=== PATIENT | female | born 1970 | race Caucasian/White ===

== ENCOUNTER 2020-08-13 11:25 | Emergency (ER) | payer OTHER, SELFPAY ==
--- NOTE | ~2020-08-13 | XR_ITS ---
EXAMINATION: XR chest 2V DATE: 08/13/2020 12:06 INDICATION: Cough. TECHNIQUE: Frontal and lateral views of the chest were obtained. COMPARISON: Chest 2 views 04/03/2018, CT abdomen and pelvis 12/16/2010 FINDINGS: There is mild atelectasis at right lung base. No pleural effusion or pneumothorax. The hear t size is normal. There are prominent paracardial fat pads. There are surgical clips in the abdomen. IMPRESSION: 1. Mild atelectasis at right lung base. Reviewed, dictated and finalized at location A. [employer]
--- NOTE | 2020-08-13 11:28 | ED.GENADULT ---
HPI - General Adult General Chief complaint: Upper Respiratory Infection Stated complaint: LUNG PROBLEMS Time Seen by Provider: 08/13/20 11:28 Source: patient Mode of arrival: ambulatory Limitations: no limitations History of Present Illness HPI narrative: 50-year-old female patient presents to the [facility] with complaints of wheezing and shortness of breath for the past 7 to 8 days. Patient states she does have a history of asthma and states it has been acting up recently due to allergies. Patient states she has been using her Advair 2 times daily as well as her rescue inhaler every 4-6 hours. Patient states she has been taking Benadryl at night but denies taking any 24-hour daily antihistamines. Patient states she is starting to get some lower chest pain with coughing and inspiratory breathing. Denies any fevers. Denies any body aches or chills. Related Data Home Medications Medication Instructions Recorded Confirmed clobetasol 0.05 % shampoo See Rx Instructions .ROUTE .COMPLEX 10/08/19 08/13/20 colesevelam 625 mg tablet See Rx Instructions .ROUTE .COMPLEX 10/08/19 08/13/20 epinephrine 0.3 mg/0.3 mL 0.3 mg IM ONCE 10/08/19 08/13/20 injection, auto-injector esomeprazole magnesium 40 mg 40 mg PO DAILY 10/08/19 08/13/20 capsule,delayed release gabapentin 300 mg/6 mL (6 mL) oral 300 mg PO DAILY ml 10/08/19 08/13/20 solution guaifenesin 600 mg tablet, 600 mg PO Q12H PRN 10/08/19 04/25/20 extended release 12 hr hydroxychloroquine 200 mg tablet 200 mg PO BID 10/08/19 08/13/20 ketoconazole 2 % shampoo See Rx Instructions .ROUTE .COMPLEX 10/08/19 08/13/20 lidocaine 5 % topical cream 1 applic TOPICAL DAILY gm 10/08/19 08/13/20 nitroglycerin 0.3 mg sublingual 0.3 mg SUBLINGUAL Q5M PRN 10/08/19 08/13/20 tablet triamcinolone acetonide 0.1 % 1 applic TOPICAL BID 10/08/19 08/13/20 topical cream fluoride (sodium) [PreviDent 5000 1 applic DENTAL DAILY 08/13/20 08/13/20 Booster Plus] guaifenesin [Mucinex] 1,200 mg PO BID 08/13/20 08/13/20 loratadine 10 mg PO DAILY 08/13/20 08/13/20 montelukast mg 08/13/20 nystatin 100,000 unit PO QID 08/13/20 08/13/20 promethazine 12.5 mg PO TID 08/13/20 08/13/20 Allergies Allergy/AdvReac Type Severity Reaction Status Date / Time bee venom protein (honey bee) Allergy Severe Anaphylactic Verified 08/13/20 11:33 Shock cinnamon Allergy Severe Anaphylactic Verified 08/13/20 11:33 Shock Sulfa (Sulfonamide Allergy Intermediate rash Verified 08/13/20 11:33 Antibiotics) Wasp Allergy Unknown Anaphylactic Uncoded 08/13/20 11:33 Shock Review of Systems Review of Systems: Narrative: CONSTITUTIONAL: Denies fever, chills, or sweats. EYES: Denies visual changes, redness, or discharge. ENT: Denies rhinorrhea, congestion, sore throat, or otalgia. CARDIOVASCULAR: Positive bilateral lower chest pain with coughing and inspiratory breathing, denies palpitations, or edema. RESPIRATORY: Positive nonproductive cough with dyspnea. GASTROINTESTINAL: Denies abdominal pain, nausea, vomiting, or diarrhea. GENITOURINARY: Denies dysuria or hematuria. SKIN: Denies rash or itching. MUSCULOSKELETAL: Denies back pain, joint pain, or myalgia. NEUROLOGIC: Denies headache, numbness, or weakness. PSYCHIATRIC: Denies anxiety or depression. [facility] Past Medical History Medical History (Updated 08/13/20 @ 12:25 by LAINEY Prince) Acute autoimmune urticaria Acute bronchitis Acute cystitis without hematuria Bile acid malabsorption syndrome Body mass index (BMI) 50.0-59.9, adult (1998) Chronic GERD (~2014) Esophagitis determined by endoscopy (~06/2020) Needs repeat EGD 06/2021 Essential (primary) hypertension History of pneumonia Mild intermittent asthma in adult without complication Mild persistent asthma without complication Screening for breast cancer Sleep apnea, obstructive Small fiber neuropathy Stress incontinence in female Systemic lupus erythematosus Surgical History Surgica
[2020-08-13 11:34] VITALS: BP 150/88; PULSE 98; RESP 20; TEMP 37.2; O2SAT 99
== END 2020-08-13 12:34 | disposition home or self-care (01) ==
PROVIDERS: Emergency Provider Nurse Practitioner Family; PCP Family Medicine
DX: J98.11 Atelectasis (principal); J45.31 Mild persistent asthma with (acute) exacerbation; I10 Essential (primary) hypertension; G47.33 Obstructive sleep apnea (adult) (pediatric); M32.9 Systemic lupus erythematosus, unspecified; G62.9 Polyneuropathy, unspecified
CPT/HCPCS: 71046; 99213; G0463

== ENCOUNTER 2021-03-03 12:02 | Emergency (ER) | payer OTHER, SELFPAY ==
[2021-03-03 12:10] VITALS: BP 151/100; PULSE 112; RESP 18; TEMP 36.9; O2SAT 97
--- NOTE | 2021-03-03 12:31 | ED.SKABFB ---
HPI - Skin/Abscess/Foreign Bdy General Chief complaint: Skin/Abscess/Foreign Body Stated complaint: Rash Rt arm Time Seen by Provider: 03/03/21 12:32 Source: patient, RN notes reviewed and old records reviewed Mode of arrival: ambulatory Limitations: no limitations History of Present Illness HPI narrative: 50 year old female who presents to express care with complaints of rash to her inner right forearm for the past 5 days. Patient states that she has history of chronic hives and she initially had a large hive on the inner right arm antecubital region but the redness and irritation of her skin has increased in size with pruritus. Patient voices concern that she has developed a cellulitis to the area from itching her skin. No open areas noted to red skin area or any weeping but does have some warmth to area, site measures 15cm X13cm in size and is above and below antecubital area now. Patient states that she has just weaned herself down from Prednisone use for history of flair in her chronic urticaria over the past 6 weeks, last dose 3 days ago. Patient states that she is taking her Claritin 3 times daily and she has history of Lupus and takes daily Plaquenil as treatment for her Lupus. MD complaint: rash Onset (ago): day(s) (5) Related Data Home Medications Medication Instructions Recorded Confirmed clobetasol 0.05 % shampoo See Rx Instructions .ROUTE .COMPLEX 10/08/19 12/26/20 colesevelam 625 mg tablet See Rx Instructions .ROUTE .COMPLEX 10/08/19 12/26/20 esomeprazole magnesium 40 mg 40 mg PO DAILY 10/08/19 12/26/20 capsule,delayed release hydroxychloroquine 200 mg tablet 200 mg PO BID 10/08/19 12/26/20 ketoconazole 2 % shampoo See Rx Instructions .ROUTE .COMPLEX 10/08/19 12/26/20 nitroglycerin 0.3 mg sublingual 0.3 mg SUBLINGUAL Q5M PRN 10/08/19 12/26/20 tablet triamcinolone acetonide 0.1 % 1 applic TOPICAL BID 10/08/19 12/26/20 topical cream fluoride (sodium) [PreviDent 5000 1 applic DENTAL DAILY 08/13/20 12/26/20 Booster Plus] loratadine 10 mg PO DAILY 08/13/20 12/26/20 gabapentin 300 mg/6 mL (6 mL) oral 300 mg PO TID ml 09/18/20 12/26/20 solution montelukast 10 mg tablet mg PO DAILY PRN tablet 09/18/20 12/26/20 Allergies Allergy/AdvReac Type Severity Reaction Status Date / Time bee venom protein (honey bee) Allergy Severe Anaphylactic Verified 12/26/20 11:05 Shock cinnamon Allergy Severe Anaphylactic Verified 12/26/20 11:05 Shock Sulfa (Sulfonamide Allergy Intermediate rash Verified 12/26/20 11:05 Antibiotics) Wasp Allergy Unknown Anaphylactic Uncoded 12/26/20 11:05 Shock Review of Systems Review of Systems: Narrative: CONSTITUTIONAL: Denies fever, chills, or sweats. EYES: Denies visual changes, redness, or discharge. ENT: reports some clear rhinorrhea, no congestion, sore throat, or otalgia. CARDIOVASCULAR: Denies chest pain, palpitations, or edema. RESPIRATORY: Reports occasional non productive cough and some dyspnea at times with exertion, has asthma and states she uses her Albuterol inhaler usually daily and sometimes every 4 hours depending on weather and environmental exposures GASTROINTESTINAL: Denies abdominal pain, nausea, vomiting, or diarrhea. GENITOURINARY: Denies dysuria or hematuria. SKIN: Positive for red inflamed rash with itching to right inner arm MUSCULOSKELETAL: Denies back pain, joint pain, or myalgia. NEUROLOGIC: Denies present headache, numbness, or acute weakness. PSYCHIATRIC: Positive history of anxiety or depression. All systems reviewed & are unremarkable except as noted in HPI and below PMFSH Past Medical History Medical History Achalasia of esophagus Acute autoimmune urticaria Acute bronchitis Acute cystitis without hematuria Bile acid malabsorption syndrome Body mass index (BMI) 50.0-59.9, adult (1998) Chronic GERD (~2014) Esophagitis determined by endoscopy (~06/2020) Needs repeat EGD 06/2021 History of e
== END 2021-03-03 13:00 | disposition home or self-care (01) ==
PROVIDERS: Emergency Provider Registered Nurse
DX: L03.113 Cellulitis of right upper limb (principal); J45.909 Unspecified asthma, uncomplicated; G47.33 Obstructive sleep apnea (adult) (pediatric); M32.9 Systemic lupus erythematosus, unspecified; K21.00 Gastro-esophageal reflux disease with esophagitis, without bleeding
CPT/HCPCS: 99213; G0463

== ENCOUNTER 2021-03-06 09:57 | Emergency (ER) | payer OTHER, SELFPAY ==
[2021-03-06 10:04] VITALS: BP 159/110; PULSE 108; RESP 20; TEMP 36.7; O2SAT 95
[2021-03-06 11:24] LABS: Basophils Percent Auto 0.4 % (0.2-1.2); Eosinophils Absolute Auto 0.5 K/mm3 (0-0.3); Eosinophils Percent Auto 6.2 % (0-4.4); Hematocrit 41.7 % (37.0-47.0); Hemoglobin 13.6 g/dL (12.0-15.0); Immature Granulocyte Absolute 0.09 K/mm3 (0.00-0.031); Immature Granulocyte Percent A 1.1 % (0-0.5); Lymphocytes Absolute Auto 1.83 K/mm3 (0.9-3.2); Lymphocytes Percent Auto 22.1 % (18.3-44.2); Mean Corpuscular HGB Conc 32.6 g/dl (32-36); Mean Corpuscular Hemoglobin 29.8 pg (26-34); Mean Corpuscular Volume 91.4 fl (80-100); Mean Platelet Volume 8.8 fl (7.4-10.4); Monocytes Absolute Auto 0.6 K/mm3 (0.1-0.6); Monocytes Percent Auto 7.1 % (2.6-8.5); Neutrophils Absolute Auto 5.2 K/mm3 (1.3-6.7); Neutrophils Percent Auto 63.1 % (45.5-73.1); Platelet Count Result 267 k/mm3 (150-375); Red Blood Count 4.56 M/mm3 (4.2-5.4); Red Cell Distribution Width 14.1 % (11.5-14.5); White Blood Count 8.3 K/mm3 (4.5-10.0)
[2021-03-06 11:33] LABS: Lactic Acid Reflex 1.5 mmol/L (0.7-2.1)
[2021-03-06 11:34] LABS: Alanine Aminotransferase 32 U/L (4-35); Albumin Level 3.9 g/dL (3.5-5.1); Alkaline Phosphatase 114 U/L (38-126); Anion Gap 8 mmol/L (8-16); Aspartate Amino Transferase 32 U/L (14-36); Bilirubin,Total 0.3 mg/dL (0.2-1.3); Blood Urea Nitrogen 15 mg/dL (7-17); Calcium 9.1 mg/dL (8.4-10.2); Carbon Dioxide 30 mmol/L (22-30); Chloride 103 mmol/L (98-107); Estimated CRCL calculation 143 ml/min; Estimated Glomerular Filt Rate > 60; Glucose 95 mg/dL (65-105); Potassium 3.9 mmol/L (3.4-5.0); Sodium 141 mmol/L (137-145)
--- NOTE | 2021-03-06 11:58 | ED.SKABFB ---
HPI - Skin/Abscess/Foreign Bdy General Chief complaint: Skin/Abscess/Foreign Body Stated complaint: cellulitis on UE Time Seen by Provider: 03/06/21 10:11 Source: patient Mode of arrival: ambulatory Limitations: no limitations History of Present Illness HPI narrative: 50-year-old with a history of lupus here with complaints of rash in the right antecubital area she states that she went to urgent care few days ago was started on Keflex however the rash is spreading. She denies any fever or chills. MD complaint: rash Onset (ago): day(s) (3) Location: RUE (Antecubital) Quality: pruritic Pain Consistency: constant Relieving factors: none Exacerbating factors: none Context: none Related Data Home Medications Medication Instructions Recorded Confirmed clobetasol 0.05 % shampoo See Rx Instructions .ROUTE .COMPLEX 10/08/19 12/26/20 colesevelam 625 mg tablet See Rx Instructions .ROUTE .COMPLEX 10/08/19 12/26/20 esomeprazole magnesium 40 mg 40 mg PO DAILY 10/08/19 12/26/20 capsule,delayed release hydroxychloroquine 200 mg tablet 200 mg PO BID 10/08/19 12/26/20 ketoconazole 2 % shampoo See Rx Instructions .ROUTE .COMPLEX 10/08/19 12/26/20 nitroglycerin 0.3 mg sublingual 0.3 mg SUBLINGUAL Q5M PRN 10/08/19 12/26/20 tablet triamcinolone acetonide 0.1 % 1 applic TOPICAL BID 10/08/19 12/26/20 topical cream fluoride (sodium) [PreviDent 5000 1 applic DENTAL DAILY 08/13/20 12/26/20 Booster Plus] loratadine 10 mg PO DAILY 08/13/20 12/26/20 gabapentin 300 mg/6 mL (6 mL) oral 300 mg PO TID ml 09/18/20 12/26/20 solution montelukast 10 mg tablet mg PO DAILY PRN tablet 09/18/20 12/26/20 Allergies Allergy/AdvReac Type Severity Reaction Status Date / Time bee venom protein (honey bee) Allergy Severe Anaphylactic Verified 03/06/21 10:08 Shock cinnamon Allergy Severe Anaphylactic Verified 03/06/21 10:08 Shock Sulfa (Sulfonamide Allergy Intermediate rash Verified 03/06/21 10:08 Antibiotics) Wasp Allergy Unknown Anaphylactic Uncoded 12/26/20 11:05 Shock Review of Systems Review of Systems: All systems reviewed & are unremarkable except as noted in HPI and below Constitutional: Constitutional: Reports no additional constitutional complaints Eyes: Eyes: Reports no additional eye complaints ENT: Reports system reviewed and no additional complaints, except as documented Cardiovascular: Cardiovascular: Reports no additional cardiovascular complaints Respiratory: Respiratory: Reports no additional respiratory complaints Gastrointestinal: Gastrointestinal: Reports no additional gastrointestinal complaints Musculoskeletal: Musculoskeletal: Reports no additional musculoskeletal complaints Integumentary/Breasts: Skin/Breast: Reports as per HPI [facility] Past Medical History Medical History Achalasia of esophagus Acute autoimmune urticaria Acute bronchitis Acute cystitis without hematuria Bile acid malabsorption syndrome Body mass index (BMI) 50.0-59.9, adult (1998) Chronic GERD (~2014) Esophagitis determined by endoscopy (~06/2020) Needs repeat EGD 06/2021 History of esophageal dilatation History of esophageal stricture History of pneumonia Mild intermittent asthma in adult without complication Mild persistent asthma without complication Screening for breast cancer Sleep apnea, obstructive Small fiber neuropathy Stress incontinence in female Systemic lupus erythematosus Surgical History Surgical History History of cholecystectomy 2010 History of esophageal surgery 2014 - Heller's myotomy History of esophagogastroduodenoscopy (EGD) (~10/2019) History of lumpectomy of right breast 2016 History of sinus surgery 1998 Family History Family History Mother Family history of type 2 diabetes mellitus Hypertension Arthritis Sibling Cancer
[2021-03-06 12:15] VITALS: BP 162/100; PULSE 94; RESP 18; O2SAT 95
== END 2021-03-06 12:16 | disposition home or self-care (01) ==
PROVIDERS: Emergency Provider Family Medicine; PCP Family Medicine
DX: B36.9 Superficial mycosis, unspecified (principal); M32.9 Systemic lupus erythematosus, unspecified; J45.909 Unspecified asthma, uncomplicated
CPT/HCPCS: 36415; 80053; 83605; 85025; 87040; 99283

== ENCOUNTER → 2021-10-03 08:25 | Outpatient (CLI) | payer OTHER, SELFPAY ==
[2021-10-04 02:21] LABS: SARS-CoV-2 RNA PCR Negative
== END ==
PROVIDERS: PCP Family Medicine; Visit Provider Nurse Practitioner
DX: Z20.822 Contact with and (suspected) exposure to COVID-19 (principal)
CPT/HCPCS: C9803; U0003; U0005

== ENCOUNTER 2022-08-27 12:30 | Outpatient (RCR) | payer OTHER, SELFPAY ==
--- NOTE | 2022-07-04 15:22 | PTOPEVAL1 ---
Assessment and note entered by Shreyas Bobo, PT, DPT Evaluation Information Assessment Status Evaluation Diagnosis Myalgia Onset 8 years Subjective Information Pt states she has small fiber peripheral neuropathy, she states she causes a delay in her reflexes. She states her walking and balance has been off since her neuropathy has worsened. She also reports tripping often. She would like to start walking for exercise. Reported Pain Level Pain Score 0: Self Report Assessment PT Clinical Summary Leah presents to therapy today for her initial evaluation with a diagnosis of myalgia. Today she reports decreased balance, strength, and coordination d/t her small fiber peripheral neuropathy. Leah demonstrates fair strength in her hips throughout as well as demonstrates increased pelvic rotation and lateral sway during ambulation. She requires increased UE support to ascend/descend stairs. She scored a 48/56 on the [place] ROSA balance assessment. Skilled physical therapy services are indicated to address balance and strength deficits, to improve functional mobility, to improve gait, and to promote unlimited mobility . Plan of Care Interventions Gait Training,Manual Therapy,Neuro Re-education, Patient/Caregiver Educati,Therapeutic Activities, Therapeutic Exercise PT Services Indicated Yes Treatment Frequency and 1x/wk for 6 wks Duration These treatments will address the objective and functional deficits as defined above. The patient will be advanced safely and appropriately in order for the patient to progress towards his/her prior level of function. Additional exercises will be introduced and as well as a comprehensive home exercise program upon discharge, if needed, ?to ensure carryover of functional gains achieved in the clinic. This treatment plan has been reviewed and agreement upon by the patient.
--- NOTE | 2022-07-23 14:20 | PCPTNOTE ---
Patient did not show to appointment this date. Called and spoke with patient who states she got her times mixed up this date. Confirmed her appointment for 08/02/22 at 14:00.
--- NOTE | 2022-08-06 16:17 | PCPTNOTE ---
Patient had to cancel due to family member passing.
--- NOTE | 2022-08-27 13:27 | PTOPDC ---
Assessment and note entered by Shreyas Bobo, PT, DPT Evaluation Information Assessment Status Discharge Diagnosis Myalgia Onset 8 years Subjective Information Pt states her walking has improved. She states she was able to walk 3k steps on Friday. She states her pain has improved and she no longer needs to use the cane when walking. Reported Pain Level Pain Score 1: Self Report Assessment PT Clinical Summary Leah presents to therapy today following 3 visits of skilled therapy and a month long participation in a home exercise program. Today she demonstrates improvements in her 2 min walk distance, but this is still decreased from her age matched peers. She also demonstrates improved times with her TUG and 5xSTS score no longer placing her at an increased risk of falls. She also demonstrates a 55/56 score on the [place] ROSA balance assessment. She has progressed well towards all of her therapy goals and will be discharged from skilled therapy services at this time with instructions to continue her HEP upon discharge and to follow up with her referring provider if new concerns arise. Plan of Care Interventions Gait Training,Manual Therapy,Neuro Re-education, Patient/Caregiver Educati,Therapeutic Activities, Therapeutic Exercise PT Services Indicated Yes Treatment Frequency and to be discharged Duration
== END 2022-08-28 08:24 | disposition home or self-care (01) ==
LOC: ANHGOSHPT 12:30
PROVIDERS: PCP Nurse Practitioner Family
DX: M79.10 Myalgia, unspecified site (principal)
CPT/HCPCS: 97110; 97112; 97161; 97530; 99199

== ENCOUNTER 2022-09-14 15:51 | Emergency (ER) | payer OTHER, SELFPAY ==
[2022-09-14 16:16] VITALS: BP 156/77; PULSE 92; RESP 16; TEMP 36.9; O2SAT 98
--- NOTE | 2022-09-14 17:05 | ED.FEMALEGU ---
HPI - Female Genitourinary General Chief complaint: Urogenital-Female Stated complaint: UTI SYMPTOMS Time Seen by Provider: 09/14/22 17:05 Source: patient and RN notes reviewed Mode of arrival: ambulatory Limitations: no limitations History of Present Illness HPI Narrative: 52-year-old female with history of lupus and small fiber neuropathy presented for complaint of left flank pain for about 4 days. She endorses at the onset it was severe while she was driving back from [place]. She states she continues to have flank pain and started with burning with urination and incomplete urination about 2 days ago. She endorses when she gets a UTI she usually starts with kidney pain. She denies nausea, vomiting diarrhea, hematuria, fevers/ chills. she endorses decreased appetite. She has taken hydrocodone, gabapentin, tylenol for symptoms. She is scheduled with her PCP this week. Related Data Home Medications Medication Instructions Recorded Confirmed colesevelam 625 mg tablet (WelChol) See Rx Instructions .Route .COMPLEX 10/08/19 05/17/22 montelukast 10 mg tablet mg PO DAILY PRN 09/18/20 05/17/22 loratadine 10 mg tablet (Claritin) 10 mg PO DAILY 08/03/21 05/17/22 triamcinolone acetonide 0.1 % 1 applic topical BID PRN 08/03/21 05/17/22 topical cream budesonide-formoterol HFA 160 1 inh inhalation ONCE 05/17/22 05/17/22 mcg-4.5 mcg/actuation aerosol inhaler (Symbicort) gabapentin 600 mg tablet 600 mg PO BID 05/17/22 05/17/22 rabeprazole 20 mg tablet,delayed 20 mg PO BID 05/17/22 05/17/22 release tiotropium bromide 2.5 2 puff inhalation BID 05/17/22 05/17/22 mcg/actuation mist for inhalation (Spiriva Respimat) Allergies Allergy/AdvReac Type Severity Reaction Status Date / Time bee venom protein (honey bee) Allergy Severe Anaphylactic Verified 09/14/22 17:05 Shock cinnamon Allergy Severe Anaphylactic Verified 09/14/22 17:05 Shock Sulfa (Sulfonamide Allergy Intermediate rash Verified 09/14/22 17:05 Antibiotics) Wasp Allergy Unknown Anaphylactic Uncoded 09/14/22 17:05 Shock Review of Systems Review of Systems: CONSTITUTIONAL: Denies body aches, fever, chills, or sweats. CARDIOVASCULAR: Denies chest pain, palpitations, or edema. RESPIRATORY: Denies cough or dyspnea. GASTROINTESTINAL: Denies abdominal pain, nausea, vomiting, or diarrhea. GENITOURINARY: per HPI SKIN: Denies rash, itching, or wounds. MUSCULOSKELETAL: Denies back pain or myalgia. 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 Body mass index (BMI) 50.0-59.9, adult (1998) Chronic GERD (~2014) Esophagitis determined by endoscopy (~06/2020) Essential hypertension History of esophageal dilatation History of esophageal stricture History of pneumonia History of shingles Sleep apnea, obstructive Small fiber neuropathy Stress incontinence in female Systemic lupus erythematosus Vitamin D deficiency Surgical History Surgical History History of cholecystectomy 2010 History of esophageal surgery 2015 - Heller's myotomy History of esophagogastroduodenoscopy (EGD) (~10/2019) History of lumpectomy of right breast 2016 History of sinus surgery 1998 Family History Family History Mother Family history of type 2 diabetes mellitus Hypertension Arthritis Sibling Cancer Patient sister from cancer Social History Social History Smoking status: Never smoker Second hand tobacco smoke exposure: No Alcohol intake: current Drinks per week: 1 Substance use: never Additional occupation/education comments: Nurse Charge Rn Gender identity (if verbalized by the patient): Female [employer] care jaleel
== END 2022-09-14 17:22 | disposition home or self-care (01) ==
PROVIDERS: Emergency Provider Nurse Practitioner Family; PCP Nurse Practitioner Family
DX: R10.9 Unspecified abdominal pain (principal); K21.9 Gastro-esophageal reflux disease without esophagitis; I10 Essential (primary) hypertension; M32.9 Systemic lupus erythematosus, unspecified
CPT/HCPCS: 81003; 87086; 87088; 99213; G0463

== ENCOUNTER 2022-10-22 09:49 | Emergency (ER) | payer OTHER, SELFPAY ==
[2022-10-22 10:02] VITALS: BP 150/102; PULSE 88; RESP 16; TEMP 36.4; O2SAT 97
--- NOTE | 2022-10-22 10:16 | ED.GENADULT ---
HPI - General Adult General Chief complaint: Extremity Problem,Nontraumatic Stated complaint: splinter big toe rt foot Source: patient Mode of arrival: ambulatory Limitations: no limitations History of Present Illness HPI narrative: Patient presents for evaluation of suspected splinter in her right great toe since 1800 last night. She was walking around barefoot in her home on wooden floors at the time of the event. She has been unable to remove it. She reports moderate pain particularly with weightbearing and walking. She is not diabetic but does have neuropathy for which she takes gabapentin 600mg PO BID. Date of last tetanus more than five years ago. She has underlying SLE. Related Data Home Medications Medication Instructions Recorded Confirmed colesevelam 625 mg tablet (WelChol) See Rx Instructions .Route .COMPLEX 10/08/19 10/22/22 triamcinolone acetonide 0.1 % 1 applic topical BID PRN Itching 08/03/21 10/22/22 topical cream budesonide-formoterol HFA 160 1 inh inhalation ONCE 05/17/22 10/22/22 mcg-4.5 mcg/actuation aerosol inhaler (Symbicort) gabapentin 600 mg tablet 600 mg PO BID 05/17/22 10/22/22 rabeprazole 20 mg tablet,delayed 20 mg PO BID 05/17/22 10/22/22 release tiotropium bromide 2.5 2 puff inhalation BID 05/17/22 10/22/22 mcg/actuation mist for inhalation (Spiriva Respimat) Allergies Allergy/AdvReac Type Severity Reaction Status Date / Time bee venom protein (honey bee) Allergy Severe Anaphylactic Verified 10/22/22 09:52 Shock cinnamon Allergy Severe Anaphylactic Verified 10/22/22 09:52 Shock Sulfa (Sulfonamide Allergy Intermediate rash Verified 10/22/22 09:52 Antibiotics) Wasp Allergy Unknown Anaphylactic Uncoded 10/22/22 09:52 Shock Review of Systems Review of Systems: CONSTITUTIONAL: Denies fever, chills, or sweats. EYES: Denies visual changes, redness, or discharge. ENT: Denies rhinorrhea, congestion, sore throat, or otalgia. CARDIOVASCULAR: Denies chest pain, palpitations, or edema. RESPIRATORY: Denies cough or dyspnea. GASTROINTESTINAL: Denies abdominal pain, nausea, vomiting, or diarrhea. GENITOURINARY: Denies dysuria or hematuria. SKIN: Reports splinter in right great toe. Denies rash or itching. MUSCULOSKELETAL: Reports pain in right great toe NEUROLOGIC: Reports chronic neuropathy in BLE. Denies headache, dizziness, or weakness. PSYCHIATRIC: Denies anxiety or depression. 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 Body mass index (BMI) 50.0-59.9, adult (1998) Chronic GERD (~2014) Esophagitis determined by endoscopy (~06/2020) Essential hypertension History of esophageal dilatation History of esophageal stricture History of pneumonia History of shingles Sleep apnea, obstructive Small fiber neuropathy Stress incontinence in female Systemic lupus erythematosus Vitamin D deficiency Surgical History Surgical History History of cholecystectomy 2010 History of esophageal surgery 2015 - Heller's myotomy History of esophagogastroduodenoscopy (EGD) (~10/2019) History of lumpectomy of right breast 2016 History of sinus surgery 1998 Family History Family History Mother Family history of type 2 diabetes mellitus Hypertension Arthritis Sibling Cancer Patient sister from cancer Social History Social History Smoking status: Never smoker Second hand tobacco smoke exposure: No Alcohol intake: current Drinks per week: 1 Substance use: never Substance use type: does not use Lack of Transportation: No Lack of Food: Never True Current Housing: I Have Housing Concerned About Future Housin
[2022-10-22] MEDS: TETANUS,DIPHTHERIA,AC PERTUSSIS ADULT (0.5 ML) BOOSTRIX IM (10:29)
== END 2022-10-22 11:27 | disposition home or self-care (01) ==
PROVIDERS: Emergency Provider Nurse Practitioner; PCP Family Medicine
DX: S91.141A Puncture wound with foreign body of right great toe without damage to nail, initial encounter (principal); W45.8XXA Other foreign body or object entering through skin, initial encounter; Z23 Encounter for immunization; K21.9 Gastro-esophageal reflux disease without esophagitis; M32.9 Systemic lupus erythematosus, unspecified; G62.9 Polyneuropathy, unspecified
CPT/HCPCS: 10120; 90471; 90715; 99213; G0463

== ENCOUNTER 2023-05-15 10:40 | Outpatient (CLI) | payer OTHER, SELFPAY ==
[2023-05-15 13:15] LABS: Kit Draw Collected
== END 2023-05-15 10:41 | disposition home or self-care (01) ==
LOC: ANHGOSHLAB 10:41
PROVIDERS: PCP Family Medicine; Visit Provider Nurse Practitioner Family
DX: Z13.1 Encounter for screening for diabetes mellitus (principal); Z13.21 Encounter for screening for nutritional disorder; Z13.220 Encounter for screening for lipoid disorders
CPT/HCPCS: 36415

== ENCOUNTER 2024-08-03 10:18 | Outpatient (CLI) | payer OTHER, SELFPAY ==
[2024-08-03 11:16] LABS: Influenza A QL RT-PCR Negative (Negative); Influenza B QL RT-PCR Negative (Negative); RSV RNA, RT-PCR Negative (Negative); SARS-CoV-2 RNA PCR Positive (Negative)
== END 2024-08-03 10:19 | disposition home or self-care (01) ==
LOC: ANHLAB 10:19
PROVIDERS: PCP Nurse Practitioner Family; Visit Provider Nurse Practitioner Family
DX: R68.89 Other general symptoms and signs (principal)
CPT/HCPCS: 87637

== ENCOUNTER 2025-01-24 09:41 | Outpatient (CLI) | payer OTHER, SELFPAY ==
--- OUTSIDE RECORDS SUMMARY | 2025-01-24 10:48 | XMS_ITS ---
Author Organization [facility] Address [address] [place] [address] [address] [place] [address] Care Team Providers Care Membership Coordinator Name Role Phone Ashley Agrawal PA-C REASON FOR VISIT med check Encounters Encounter Location Date Provider Diagnosis [facility] [address] [facility] [address] [place] [address] 01/10/2025 sAhley Agrawal Plan Of Treatment Next Appt Details Provider Name:Veronica Mauro adelfo, 04/14/2025 10:30:00 AM, [address] [facility], [address], [place], [address], Progress Notes * Leah ARRINGTONDOB: 1 (54 yo F)Acc No.[id number]:01/10/2025 Progress Notes Patient: Leah GOODEN Appointment Provider: MONIQUE Singh :1970 A ge:54 Y S ex:Female Supervising Provider:Sanjuana Ramirez MD Date:01/10/2025 Address:[address] [place] [address], [facility] Subjective: * Chief Complaints: * 1 . Med check. * Medical History: Objective: * Vitals: Assessment: Plan: * Treatment: * Billing Information: * Visit Code: * Procedure Codes: * Electronic signature of Jagruti Ramirez MD on 01/24/2025 at 10:48 AM CDT Sign off status: Pending * Appointment Provider: MONIQUE Singh Date: 0 01/10/2025 Generated for Printing/Faxing/eTransmitting on: 0 01/24/2025 10:48 AM CDT
--- OUTSIDE RECORDS SUMMARY | 2025-01-24 10:49 | XMS_ITS | Encounter Summary ---
Author Organization [facility] Address [address] [place] [address] Care Team Providers Care Senior Gl Accountant Name Role Phone Celestino Barajas DO Primary Care Provider [phone]- [phone] Bahman Thomas MD PhD Unavailable Cameron Fong MD Primary Care Provider +1- [phone] Luda Bolaños MD Primary Care Provider Cameron Fong MD Primary Care Provider [phone]- [phone] Luda Bolaños MD Primary Care Provider Elizabeth Orr MD Primary Care Provider Hanh Mcleod RN Unavailable Unavailabl e Encounter Details Date Type Department Care Team (Late st Contact Info) Description 12/30/2017 Orders Only [address] [address] Holley Lux MD [address] [address] Social History Tobacco Use Types Packs/Day Years Used Date Smoking Tobacco: Never Comments Unknown Sex and Gender Information Value Date Recorded Sex Assigned at Not on file Legal Sex Female 12:28 PM [employer]EL[employer] Gender Identity Female 03/13/2018 10:24 AM CDT Sexual Orientation Not on file documented as of this encounter Plan of Treatment Not on file documented as of this encounter Visit Diagnoses Not on filedocumented in this encounter Care Teams Senior Gl Accountant Relationship Specialty Start Date End Date Celestino Barajas DO PCP - General 01/02/17 07/15/18 Cameron Fong MD [address] [place] [address] PCP - General Family Practice 07/16/18 10/06/19 Luda Bolaños MD [address] [place] [address] PCP - General Family Medicine 10/07/19 10/27/19 Cameron Fong MD [address] [place] [address] PCP - General 10/28/19 12/06/19 Luda Bolaños MD [address] [place] [address] PCP - General Family Medicine 12/07/19 09/26/20 Elizabeth Orr MD [address] [place] [address] PCP - General Family Practice 09/27/20 Bahman Thomas MD PhD [address] [place] [address] Referring Physician Neuromuscular Medicine 06/29/1812/06/19 Hanh Mcleod RN Registered Nurse Pulmonary Disease 12/02/22 documented as of this encounter
--- OUTSIDE RECORDS SUMMARY | 2025-01-24 10:49 | XMS_ITS ---
Author Organization [facility] Address [address] [place] [address] [address] [place] [address] Care Team Providers Care Pet Care Worker Name Role Phone Veronica Rivera Unavailable [phone] Allergies Allergen (clinical drug ingredient) Drug/Non Drug Allergy documented on EMR Reaction Allergy Type Onset Date Status Cinnamon Cinnamon anaphylaxis Allergy Active Substance with sulfonamide structure and antibacterial mechanism of action (substance) Sulfa Antibiotics hives Drug Allergy Active REASON FOR VISIT med check Medications Medication SIG (Take, Route, Frequency, Duration) Notes Start Date End Date Status Nystatin 206074 UNIT/ML Mouth/Throat for 30 Days Active traMADol HCl 50 MG 1 tablet as needed O ral twice a day for 30 days 10/18/2024 Active Gabapentin 600 MG Oral for 30 Days Active Colesevelam HCl 625 MG Oral for 30 Days Active Latanoprost 0.005 % Ophthalmic for 25 Days Active Diphenoxylate-Atropine 2.5-0.025 MG/5ML 5 mL as needed Orally Four times a day Active Timolol Maleate 0.5 % INSTILL 1 DROP INT O BOTH EYES ONCE IN THE MORNING Ophthalmic for 75 Days Active Ondansetron HCl 4 MG Oral for 21 Days Active RABEprazole Sodium 20 MG Oral for 30 Days Active Vital Signs Blood pressure systolic 147 mm Hg 01/21/20 25 Blood pressure diastolic 85 mm Hg 025 Heart Rate 78 /min 01/20/2025 Height 5ft 5.5in in 01/20/2025 Weight 309 lbs 01/20/2025 BMI 50.63 kg/m2 01/20/2025 Height-cm 166.37 cm 01/20/2025 Weight-kg 140.16 kg 01/20/2025 Encounters Encounter Location Date Provider Diagnosis [facility] [id number] [place] [address] [address] [place] [address] 01/20/2025 Veronicanakita Rivera Morbid obesity E66.01 ; [facility] use of drug Z79.899 and Peripheral neuropathy G62.9 Assessments Encounter Date Diagnosis (ICD Code) Assessment Notes Treatment Notes Treatment Clinical Notes Section Notes 01/20/2025 Morbid obesity (ICD-10 - E66.01) 01/20/2025 assistant terminal manager use of drug (ICD-10 - Z79.899) 01/20/2025 Peripheral neuropathy (ICD-10 - G62.9) 01/20/2025 Other Body Mass Index : Care Instructions material was printed, High Blood Pressure: Care Instructions material was printed Plan Of Treatment Treatment Notes Assessment Notes Other Body Mass Index: Car e Instructions material was printed, High Blood Pressure: Care Instructions material was printed Next Appt Details Provider Name:Veronica Mauro adelfo, 04/14/2025 10:30:00 AM, [id number] [place] [address], [address], [place], [address], Progress Notes * Leah ARRINGTONDOB: 1 (54 yo F)Acc No.[id number]:01/20/2025 Progress Notes Patient: Leah GOODEN Appointment Provider: Janice Rivera NP :1970 A ge:54 Y S ex:Female Supervising Provider:Sanjuana Ramirez MD Date:01/20/2025 Address:[address] [place], [place] [address] Subjective: * Chief Complaints: * 1 . Med check. * HPI: * Established Patient: Established Patient Questionnaire: 1 . Are you currently taking a Blood Thinner Medication? N o 2 . Do you have an allergy to I.V. Contrast or Shellfish? Y es 3 . List any changes to medical history. (eg; Falls, Test, Scans, Blood Work, and Hospitalizations) N one 4 . Have you been exposed to anyone with COVID in the last 2 weeks? N o 5 . Have you been exposed to anyone with the FLU in the last 72 hours? N o 6 . What is your Pain Level today? (1-10, Scroll and select one) 2 7 . Where is your pain located? H ead,Left Hand,Low Back,Left Leg,Right Leg 8 . After your last visit, what Percentage of improvement did you experience? 5 9 . Are you doing Physical Therapy, Chiropractic, or Massage Therapy? Y es 1 0. Are you doing an at home Exercise Program? Y es 1 1. What activities or positions increase your Pain? (Scroll to select one or multiple) S itting,Chores 1 2. What activities or positions decrease your Pain? (Scroll to select one or multiple) L nirav down,Walking,Massage Therapy 1 3. How would you describe your Pain? (Scroll to select one or multiple) A elizabeth,Throbbing,Numbness 1 4. Are you having difficulty sleeping? N o 1 6. When was your last Mammogram? (Please put N/A if you are male, for Females please put the best Estimate or Never. ) A ugust 24 1 7. When was your last Colonoscopy? (Please put the best Estimate or Never. ) F eb 23 1 8. Do you need any refills on your medications today? Y es 1 9. Please list ALL changes to Medications or Allergies? I ncreased gabapentin 2 0. Are you Diabetic? N o 2 1. Do you suffer from Constipation? N o Procedure Consent P ain Management Agreement obtained on 0 01/20/2025 * Medical History: L upus, Small fiber peripheral neuropathy, Polymyositis/autoimmune, Achalasia, Bile acid malabsorption, Increased eye pressure, Asthma, Allergies. * Surgical History: c holecystectomy , 2 lumpectomies from breast benign . * Family History: F ather: 81 yrs, myasthenia gravis. M other: 96 yrs, vascular dementia.? * Social History: * Established Patient: S moking D o you smoke? N o Form Scores C ESD-R PMQ-R GPCOG Date 0 10/18/2024 C ESD-R Score 2 C ESD-R Risk L ow Risk (0 - 16) P MQ-R Score 2 0 P MQ-R Risk L ow Risk (0 - 34) G PCOG Score 9 G PCOG Risk N o Risk (9) C ESD-R PMQ-R GPCOG Testing Interval L ow Risk (every 6 months) C ESD-R PMQ-R GPCOG Next Test Due 0 04/17/2025 S OAPP Date 0 10/18/2024 S OAPP-R Score 9 S OAPP-R Risk L ow Risk (0 -9) S OAPP-R Testing Interval L ow Risk (every 6 months) C OMM Date 0 10/18/2024 C OMM Score 0 C OMM Risk N egative (< 9) * GPCOG: G PCOG 1 . I am going to give you a name and address. After I have said it, I want you to repeat it. Remember this name and address because I am going to ask you to tell it to me again in a few minutes: Jude Guillaume, [address] [facility]. Max 4 attempts R ead to the patient. 2 . What is the date? (exact only) C orrect 3 . Choose which image indicates the hours of a clock (correct spacing required) C orrect 4 . Which clock shows 10 minutes past eleven o'clock? C orrect 5 . Can you tell me something that happened in the news recently? (Recently = in the last week. If a general answer is given, eg war , lot of rain , ask for details. Only specific answer scores). C orrect 6 . What was the name and address I asked you to remember? First Name = Jude Bourgeois orrect 6 . What was the name and address I asked you to remember? Last Name = [place] C orrect 6 . What was the name and address I asked you to remember? Street Number = [address] C orrect 6 . What was the name and address I asked you to remember? Street Name = [facility] C orrect 6 . What was the name and address I asked you to remember? City = [place] C orrect T otal Score (out of 9) 9 W e have evaluated the patient using PMQ-R, CESD-R and GPCOG assessments. Based on data collected from the PMQ-R, we are evaluating the risk for abuse, misuse and diversion. Furthermore, we are screening the patient for depression using the CESD-R assessment. Lastly, we are utilizing GPCOG to ensure that the current treatment plan is not impairing cognition. Per assessments today the patient has low risk for depression, low risk for opioid misuse, abuse, and no cognitive impairment. * Medications: T aking Diphenoxylate-Atropine 2.5-0.025 MG/5ML Liquid 5 mL as needed Orally Four times a day , Taking Ondansetron HCl 4 MG Tablet Oral , Taking RABEprazole Sodium 20 MG Tablet Delayed Release Oral , Taking Timolol Maleate 0.5 % Solution INSTILL 1 DROP INTO BOTH EYES ONCE IN THE MORNING Ophthalmic , Taking Latanoprost 0.005 % Solution Ophthalmic , Taking Gabapentin 600 MG Tablet Oral , Taking Colesevelam HCl 625 MG Tablet Oral , Taking Nystatin 497044 UNIT/ML Suspension Mouth/Throat , Taking traMADol HCl 50 MG Tablet 1 tablet as needed Oral twice a day , Medication List reviewed and reconciled with the patient * Allergies: S ulfa Antibiotics: hives, Cinnamon: anaphylaxis. Objective: * Vitals: H t: 5ft 5.5in, Wt:309lbs, BP:147/85mm Hg, Pain scale:21-10, HR:78/min, BMI:50.63Index, Ht-cm: 166.37 cm, Wt-k.16 kg, Body Surface Area: 2.54. Assessment: * Assessment: 1. M orbid obesity - E66.01 (Primary) 2 . L chen term use of drug - Z79.899? 3. P eripheral neuropathy - G62.9 Plan: * Treatment: * Billing Information: * Visit Code: * Procedure Codes: * Electronic signature of Jagruti Ramirez MD on 01/24/2025 at 10:48 AM CDT Sign off status: Pending * Appointment Provider: Janice Rivera NP Date: 0 01/20/2025 Generated for Printing/Faxing/eTransmitting on: 0 01/24/2025 10:48 AM CDT History and Physical Notes * HPI (History of Present Illness) Category Sub-Category Detail Notes Category Not es *Established Patient Established Patient Questionnaire: 1. Are you currently taking a Blood Thinner Medication?: No 2. Do you have an allergy to I.V. Contra st or Shellfish?: Yes 3. List any changes to medic al history. (eg; Falls, Test, Scans, Blood Work, and Hospitalizations): None 4. Have you been exposed to anyone with COVID in the last 2 weeks?: No 5. Have you been exposed to anyone with the FLU in the last 72 hours?: No 6. What is your Pain Level t sukhwinder? (1-10, Scroll and select one): 2 7. Where is your pain locate d?: Head,Left Hand,Low Back,Left Leg,Right Leg 8. After your last visit, wh at Percentage of improvement did you experience?: 5 9. Are you doing Physical Th erapy, Chiropractic, or Massage Therapy?: Yes 10. Are you doing an at home Exercise Pr ogram?: Yes 11. What activities or posit ions increase your Pain? (Scroll to select one or multiple): Sitting,Chores 12. What activities or posit ions decrease your Pain? (Scroll to select one or multiple): Lying down,Walking,Massage Therapy 13. How would you describe y our Pain? (Scroll to select one or multiple): Aching,Throbbing,Numbness 14. Are you having difficulty sleeping?: No 16. When was your last Mammo gram? (Please put N/A if you are male, for Females please put the best Estimate or Never. ): May 29 17. When was your last Colon oscopy? (Please put the best Estimate or Never. ): Nov 28 18. Do you need any refills on your medi cations today?: Yes 19. Please list ALL changes to Medicatio ns or Allergies?: Increased gabapentin 20. Are you Diabetic?: No 21. Do you suffer from Constipation?: No Procedure Consent Pain Management Agreement christina ponce on: 01/20/2025
--- OUTSIDE RECORDS SUMMARY | 2025-01-24 10:49 | XMS_ITS | Referral Summary ---
Author Organization [facility] Address [address] [facility] [place] [address] Care Team Providers Care International Account Manager Name Role Phone Elizabeth Orr MD Primary Care Provider Hanh Mcleod RN Unavailable Unavailabl e Encounters Date Type Department Care Team Description 01/21/2025 10:00 AM CDT Office Visit [facility] Allergy and Immunology [address] [place] [address] [address] [place] [phone] Juanjose Valdez MD PhD Allergic rhinitis due to pollen, unspecified seasonality (Primary Dx); Chronic idiopathic urticaria 01/20/2025 Telephone [facility] Allergy and Immunology [address] [place] [address] [address] [place] [phone] Aleta Weaver 01/14/2025 Orders Only [facility] Pulmonary [address] [facility] Advanced Medicine 8th Floor [address] [place] [id number] Miguel Joseph MD PhD 01/10/2025 3:00 PM CDT Office Visit [facility] Neuro Muscle [address] [facility] Medicine 6th [address] [place] [id number] Bahman Thomas MD PhD HyperCKemia (Primary Dx); Small fiber neuropathy from Last 3 Months Allergies Active Allergy Reactions Criticality Noted Date Comments Cinnamon Swelling Medium 04/10/2021 Sulfa (Sulfonamide Antibiotics) Rash Medium 04/06 Medications ketoconazole (NIZORAL) 2 % shampoo Apply 1 application (deactivated) topically as needed for irritation 10/09/19 16 Active loratadine (CLARITIN) 10 mg tablet Take 1 tablet (10 mg total) by mouth 2 (two) times a day as needed for allergies 06/26/20 17 Active PROAIR HFA 90 mcg/actuation inhalerIndicati ons:Acute Asthma Attack Inhale 1 puff every 4 (four) hours as needed for wheezing 6 03/05/20 18 Active nitroglycerin (NITROSTAT) 0.[address] 1 tablet (0.3 mg total) under the tongue every 10 (ten) minutes as needed for chest pain (BEFORE MEALS). 30 tablet 3 03/13/20 18 Active guaiFENesin ER (MUCINEX) 600 mg 12 hr tablet Take 2 tablets (1,200 mg total) by mouth 2 (two) times a day as needed for congestion Active clobetasoL (CLOBEX) 0.05 % shampooIndicati ons:Scalp Psoriasis Apply topically daily 118 mL 1 12/07/19 20 Active cetirizine (ZyrTEC) 10 mg tabletIndicatio ns:Allergic Rhinitis Take 1 tablet (10 mg total) by mouth daily before breakfast 08/13/20 20 Active promethazine (PHENERGAN) 12.5 mg tablet Take 1 tablet (12.5 mg total) by mouth 3 (three) times a day as needed for nausea or vomiting 90 tablet 1 01/09/20 21 Active diphenhydrAMINE (BENADRYL) 50 mg capsule Take 1 capsule (50 mg total) by mouth every 12 (twelve) hours as needed for itching or allergies Active hydroCHLOROthia zide (HYDRODIURIL) 12.5 mg tabletIndicatio ns:hypertension Take 1 tablet (12.5 mg total) by mouth daily Active triamcinolone (NASACORT) 55 mcg nasal inhalerIndicati ons:Allergic rhinitis due to pollen, unspecified seasonality Administer 2 sprays into each nostril daily 16.9 mL 5 05/27/20 22 Active Additional Information Patient taking differently:2 spray each nostrilEvery morning, Indications: Allergic Rhinitis, Reported on 01/21/2025 acetaminophen (TYLENOL) 325 mg tablet Take 2 tablets (650 mg total) by mouth every 6 (six) hours as needed for pain Active ergocalciferol (VITAMIN D) 50,000 unit capsule Take 1 capsule (50,000 Units total) by mouth once a week 4 capsule 2 01/23/20 23 Active hydrOXYchloroQU INE (PLAQUENIL) 200 mg tablet TAKE 2 TABLETS(400 MG) BY MOUTH DAILY 60 tablet 02/28/20 23 Active cyclobenzaprine (FLEXERIL) 10 mg tablet Take 1 tablet (10 mg total) by mouth 3 (three) times a day as needed for muscle spasms 05/15/20 23 Active traMADoL (ULTRAM) 50 mg tablet Take 1 tablet (50 mg total) by mouth 2 (two) times a day as needed for pain 05/16/20 23 Active fluocinonide (LIDEX) 0.05 % external solutionIndicat ions:Frontal fibrosing alopecia Apply topically 2 (two) times a day as needed for rash To scalp for rash or itching. AVOID face. 60 mL 3 07/04/20 23 Active Additional Information Patient not taking.Reported on 01/21/2025 latanoprost (XALATAN) 0.005 % ophthalmic solution Administer 1 drop into both eyes daily 07/15/[address] (ACIPHEX) 20 mg EC tablet TAKE 1 TABLET(20 MG) BY MOUTH TWICE DAILY BEFORE BREAKFAST AND LUNCH 60 tablet 6 11/17/19 24 Active ondansetron (ZOFRAN) 4 mg tablet Take 1 tablet (4 mg) prn upto tid for nausea & vomiting 60 tablet 3 12/24/19 24 Active acetic acid-hydrocorti sone otic solution Administer into each ear as needed 11/22/19 24 Active colesevelam (WELCHOL) 625 mg tabletIndicatio ns:bile acid diarrhea Take 2 tablets (1,250 mg total) by mouth 2 (two) times a day with meals 120 tablet 6 03/08/20 24 Active meloxicam (MOBIC) 15 mg tabletIndicatio ns:Musculoskele lisbeth pain TAKE 1 TABLET(15 MG) BY MOUTH DAILY 30 tablet 04/12/20 24 Active benzonatate (TESSALON) 200 mg capsuleIndicati ons:Lower respiratory infection (e.g., bronchitis, pneumonia, pneumonitis, pulmonitis) Take 1 capsule (200 mg total) by mouth 3 (three) times a day as needed for cough 30 capsule 04/21/20 24 Active timolol (TIMOPTIC) 0.5 % ophthalmic solution 06/15/20 24 Active nystatin 100,000 unit/mL suspension SWISH AND SWALLOW 5 ML BY MOUTH DAILY 150 mL 3 08/24/20 24 Active Additional Information Patient not taking.Reported on 01/21/[address] (CYMBALTA) 30 mg capsule Take 1 capsule (30 mg total) by mouth daily 30 capsule 3 10/08/19 25 025 Active Additional Information Patient not taking.Reported on 01/21/2025 gabapentin (NEURONTIN) 600 mg tabletIndicatio ns:Small fiber neuropathy TAKE 1 TABLET(600 MG) BY MOUTH TWICE DAILY 60 tablet 2 12/18/19 25 Active Additional Information Patient taking differently: 600 mg oral 3 times daily, Reported on 01/21/2025 budesonide-form oteroL (Symbicort) 160-4.5 mcg/actuation inhaler Inhale 2 puffs 2 (two) times a day Rinse mouth with water after use. Do not swallow. 10.2 g 5 01/15/20 25 Active EPINEPHrine 0.3 mg/0.3 mL auto-injection syringeIndicati ons:Anaphylaxis Inject 0.3 mL (0.3 mg total) into the muscle as instructed as needed for anaphylaxis Call 911 after use. 2 each 1 01/22/20 25 026 Active azelastine (ASTELIN) 137 mcg (0.1 %) nasal sprayIndication s:Allergic rhinitis due to pollen, unspecified seasonality Administer 2 sprays into each nostril 2 (two) times a day Use in each nostril as directed 30 mL 5 01/22/20 25 026 Active olopatadine-mom etasone (Ryaltris) 665-25 mcg/spray spray,non-aeros ol Administer 665 mcg into affected nostril(s) 2 (two) times a day 9 g 01/22/20 25 Active Symbicort 160-4.5 mcg/actuation inhaler INHALE 2 PUFFS BY MOUTH TWICE DAILY. RINSE MOUTH WITH WATER AFTER USE. DO NOT SWALLOW 10.2 g 5 01/25/20 23 025 Discontin ued(Reord er) EPINEPHrine 0.3 mg/0.3 mL auto-injection syringeIndicati ons:Anaphylaxis Inject 0.3 mL (0.3 mg total) into the muscle as instructed as needed for anaphylaxis Call 911 after use. 2 each 1 02/16/20 24 025 Discontin ued(Reord er) Active Problems Problem Noted Date Diagnosed Date HyperCKemia 02/11/2024 Cystosarcoma phyllodes of right breast 3 Cough 06/20/2022 Dysphonia 06/20/2022 Weight loss counseling, encounter for 05/27/2022 Assessment & Plan (02/03/2023 2:44 PM CDT): Reviewed calorie restriction based on BMR as previously detailed. Reviewed recommendation/goal of >/= 150 minutes/week moderate-intensity aerobic exercise. Asked to keep detailed food diary for at least 1 week and bring to next visit and/or continue tracking on phone. Assessment & Plan (10/10/2022 1:22 PM KENNEL SUPERVISOR): Reviewed calorie restriction based on BMR as previously detailed. Reviewed recommendation/goal of >/= 150 minutes/week moderate-intensity aerobic exercise. Asked to try to track consistently with [employer] for at least 1 week to help identify calorie/carb/protein intake. Commended for weight loss to date. Assessment & Plan (07/05/2022 9:42 AM CDT): Reviewed calorie restriction based on BMR as previously detailed. Reviewed recommendation/goal of >/= 150 minutes/week moderate-intensity aerobic exercise. Asked to keep detailed food diary for at least 1 week and bring to next visit and/or continue tracking on phone. Assessment & Plan (05/27/2022 12:30 PM CDT): Discussed that significant health benefits/risk reduction may be seen with even 5% weight loss. Discussed that weight loss will require calorie deficit. Calculated basal metabolic rate and estimated total energy expenditure; discussed 500-1000 kcal/day deficit to lose 1-2 lb per week. Asked to keep detailed food diary for at least 1 week and bring to next visit. Discussed setting SMART goals. Discussed relatively small, although significant, role of exercise in weight loss; greater importance in weight maintenance as shown in Look Ahead study and National Weight Control Registry. Discussed recommendation/goal for 150 minutes per week moderate-intensity aerobic exercise. Metabolic and nutritional disorder 05/27/2022 Assessment & Plan (02/03/2023 2:45 PM CDT): Reviewed most recent labs available. Continue low-carb (<150 g/day), low- glycemic diet. Stay off of metformin. Assessment & Plan (10/10/2022 1:29 PM KENNEL SUPERVISOR): Reviewed interim labs, will recheck CMP, vit D and A1C. Continue low-carb (<150 g/day), low-glycemic diet. Plan- Given side effects from metformin advised to stop, may reconsider trial in future. Discussed use of GLP-1, wants to wait until after colonoscopy and continue current approach with diet and exercise changes rather than starting medication as she is losing weight. Assessment & Plan (07/05/2022 9:45 AM CDT): Reviewed labs. Continue low-carb (<150 g/day), low-glycemic diet. Discussed options and will add tirzepatide. Discussed risks, benefits, alternatives, potential side effects. No personal or family history of MTC or MEN2. Reviewed dosing/titration. Warned re potential interaction with OCP. Referred to websites for additional instructions/info/video. For patients seen in office, proper pen use shown with demo pen. Assessment & Plan (05/27/2022 12:30 PM CDT): Labs. Discussed increased risk for DM in setting of obesity and FHx DM. Discussed insulin resistance including effect on weight and risk for progression to diabetes. Recommended low-carb, low-glycemic diet; choose whole grains and avoid more highly processed carbohydrates. Discussed potential benefits of this w/r/t gut microbiome. Referred to ADA and [facility] [facility] websites for additional information on topics including glycemic index/carbohydrate choices, protein sources. More detailed recommendations pending review of labs and food record. Class 3 severe obesity with body mass index (BMI) of 60.0 to 69.9 in adult 05/27/2022 Assessment & Plan (03/09/2023 9:58 PM CDT): Obesity is improving.. Plan: Diet interventions: as noted.. and Regular aerobic exercise program discussed. Follow up in [] 1 month; [] 2 months; [x] 3 months; [] 6 months; [] Other: Assessment & Plan (10/10/2022 1:23 PM KENNEL SUPERVISOR): Obesity is improving with treatment. Diet interventions: as noted. Regular aerobic exercise program discussed. Plan- Continue diet/exercise interventions as discussed. Schedule follow up with Dr. Maldonado in 2-3 months. Assessment & Plan (05/27/2022 12:29 PM CDT): Obesity ongoing. General weight loss/lifestyle modification strategies discussed (elicit support from others; identify saboteurs; non-food rewards, etc). Diet interventions: as noted. Recommendations provided in AVS. Informal exercise measures discussed, e.g. taking stairs instead of elevator. Regular aerobic exercise program discussed. More detailed recommendations pending review of labs and food record. 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 Discussed importance of adequate sleep; good sleep hygiene in controlling weight as well as for overall health. Systemic lupus erythematosus 05/03/2011 Esophageal reflux 04/06/2004 Asthma Resolved Problems Problem Noted Date Diagnosed Date Resolved Date Esophageal dysphagia 02/09/2019 020 Overview (02/09/2019): Added automatically from request for surgery [id number] Angular cheilitis 07/10/2017 07/21/2020 Excoriation 06/26/2017 07/21/2020 Pruritus 06/26/2017 07/21/2020 Toxic effect of venom(989.5) 12/21/2015 07/21/2020 Food allergy 12/21/2015 07/21/2020 Alopecia 05/29/2015 07/21/2020 Mass of breast 05/03/2014 07/21/2020 Achalasia of esophagus 11/05/201207/21 Muscle pain 06/06/2011 07/21/2020 Abdominal pain, right lower quadrant 04/06/2004 07/21/2020 Immunizations Immunization Administration Dates Next Due Influenza, Quadrivalent, Zulema l Culture-based MDCK, Preservative Free, Antibiotic Free, Intramuscular 08/18/2023 Influenza, Quadrivalent, Spl it, Preservative Free, Intramuscular 09/22/2017 Influenza, Trivalent, IM (MDV) 09/09/2012 Influenza, Trivalent, Preser vative Free, Intramuscular 09/22/2015,08/23/2013,09/02/2011 Social History Tobacco Use Types Packs/Day Years Used Date Smoking Tobacco: Never Passive Smoke Exposure: Never Smokeless Tobacco: Never Tobacco Cessation:Counseling Given: Not Answered Alcohol Use Standard Drinks/Week Comments Yes 2 (1 standard drink = 0.6 oz pur e alcohol) AUDIT-C Answer Date Recorded Q1: How often do you have a drink containing alc ohol? Monthly or less 10/21/2024 Q2: How many drinks containi ng alcohol do you have on a typical day when you are drinking? 1 or 2 10/21/2024 Q3: How often do you have si x or more drinks on one occasion? Never 10/21/2024 Personal Safety Answer Date Recorded Have you ever been in or are you currently in a harmful physical or emotional relationship or is someone making you feel afraid or unsafe? Denies 10/21/2024 Comments No Sex and Gender Information Value Date Recorded Sex Assigned at Not on file Legal Sex Female 12:28 PM KENNEL SUPERVISOR Gender Identity Female 03/13/2018 10:24 AM CDT Sexual Orientation Not on file Last Filed Vital Signs Vital Sign Reading Time Taken Comments Blood Pressure 146/72 01/21/2025 9:56 AM CDT Pulse 82 01/21/2025 9:56 AM CDT Temperature 37 C (98.6 F) 01/21/2025 9:56 AM CDT Respiratory Rate 18 01/21/2025 9:56 AM CDT Oxygen Saturation 95% 01/21/2025 9:56 AM CDT Inhaled Oxygen Concentration - - Weight 145.2 kg (320 lb) 01/21/2025 9:56 AM CDT Height 165.1 cm (5' 5 ) 01/21/2025 9:56 AM CDT Body Mass Index 53.25 01/21/2025 9:56 AM CDT Plan of Treatment Not on file Medical Devices Implanted Type Area Customer Service Engineer Device Identifier Shelf Expiration Date Model / Serial / Lot [employer] Ultraclip Bard 17ga 10cm 2 Trigger Permanent Ultrasound [id number] - [id number] Implanted:Qty: 1 on 03/18/2022 at [facility] [employer] [id number] / / Procedures Procedure Name Priority Date/Time Associated Diagnosis Comments SCREENING MAMMOGRAM BILATERAL W JAKOB Schedule Routine, Read Routine (OP Routine) 05/18/2024 10:03 AM CDT Cystosarcoma phyllodes of right breast Mass of upper outer quadrant of right breast Breast lesion COLONOSCOPY 11/28/2022 11:02 AM KENNEL SUPERVISOR from Last 3 Months or Most Recently Relevant to Health Maintenance Results * Screening Mammogram Bilateral W Jakob (05/18/2024 10:03 AM CDT) Anatomical Region Laterality Modality Breast Bilateral Mammography Narrative 05/19/2024 8:25 AM CDT Mammogram Technique: Bilateral Digital Breast Tomosynthesis, Bilateral C-view 2D Screening mammogram. Views obtained: bilateral craniocaudal and bilateral mediolateral oblique. Computer Aided Detection was performed. Mammogram Findings: The present examination has been compared to prior imaging studies performed at [facility] on 03/05/2022 and 04/15/2023, and at [facility] on 02/28/2022. There are scattered areas of fibroglandular density. There is no suspicious abnormality in either breast. Impression: There is no mammographic evidence of malignancy. Annual screening mammography is recommended. OVERALL FINAL ASSESSMENT: BI-RADS CATEGORY 1: Negative. Procedure Note Anjali Gil MD - 05/19/2024 Mammogram Technique: Bilateral Digital Breast Tomosynthesis, Bilateral C-view 2D Screening mammogram. Views obtained: bilateral craniocaudal and bilateral mediolateral oblique. Computer Aided Detection was performed. Mammogram Findings: The present examination has been compared to prior imaging studies performed at [facility] on 03/05/2022 and 04/15/2023, and at [facility] on 02/28/2022. There are scattered areas of fibroglandular density. There is no suspicious abnormality in either breast. Impression: There is no mammographic evidence of malignancy. Annual screening mammography is recommended. OVERALL FINAL ASSESSMENT: BI-RADS CATEGORY 1: Negative. Fabi Hill MD IMG MAMMO PROCEDURES Fi nal Result * COLONOSCOPY (11/28/2022 11:02 AM KENNEL SUPERVISOR) Anatomical Region Laterality Modality Other Narrative Procedure Note Kwasi Holder MD - 11/28/2022 11:02 AM CST ENDOSCOPY LAB Patient Name: Parish Arrington Procedure Date: 11/28/2022 11:02 AM Date of : 1970 Admit Type: Outpatient Age: 52 Gender: Female Attending MD: Christelle Holder M.D. Room: [facility] ENDOSCOPY ROOM 03 Note Status: Finalized Procedure: Colonoscopy Indications: Screening for colorectal malignant neoplasm, Last colonoscopy: July 2011 Providers: Christelle Holder M.D. Referring MD: Elizabeth Orr M.D. Medicines: Monitored Anesthesia Care Complications: No immediate complications. Estimated Blood Loss: Estimated blood loss was minimal. Procedure: Pre-Anesthesia Assessment: - Immediately prior to administration ofmedications, the patient was re-assessed for adequacy to receive sedatives. The benefits, risks and alternatives of theprocedure and sedation were discussed and informed consentwas obtained. All questions were answered. Please referto the signed informed consent document in the medical record. The scope was passed under direct vision.The [id number] was introduced through the anusand advanced to the cecum, identified by appendiceal orifice and ileocecal valve. The colonoscopy was performed without difficulty. The patient tolerated the procedure well. The quality of the bowel preparation was good. The quality of the bowel preparation was evaluated using the BBPS (BostonBowel Preparation Scale) with scores of: Right Colon = 3, Transverse Colon = 3 and Left Colon = 3 (entiremucosa seen well with no residual staining, smallfragments of stool or opaque liquid). The total BBPS score equals 9. Bowel prep was administered using a split dose. Findings: Three sessile polyps were found in the sigmoid colon. The polyps were3 to 4 mm in size. These polyps were removed with a cold biopsyforceps. Resection and retrieval were complete. A 6 mm polyp was found in the transverse colon. The polyp wassessile. The polyp was removed with a cold biopsy forceps. Resection and retrieval were complete. Multiple small and large-mouthed diverticula were found in thesigmoid colon and descending colon. The colon (entire examined portion) appeared normal. Biopsies for histology were taken with a cold forceps from the entire colon for evaluation of microscopic colitis. No additional abnormalities were found on retroflexion. Impression: - Three 3 to 4 mm polyps in the sigmoid colon,removed with a cold biopsy forceps. Resected andretrieved. - One 6 mm polyp in the transverse colon, removedwith a cold biopsy forceps. Resected and retrieved. - Diverticulosis in the sigmoid colon and in the descending colon. - The entire examined colon is normal. Biopsied. Recommendation: - Await pathology results. Repeat colonoscopy in 5 years for surveillance. Can increase welchol to two pills bid; if this is not enough to improvediarrhea, can consider lomotil on a scheduled basis. Electronically signed by Aakash Holder MD Christelle Holder M.D. 11/28/2022 11:25:04 AM Number of Addenda: 0 Note Initiated On: 11/28/2022 11:02 AM Kwasi Holder MD ENDOSCOPY PROCEDURES Final Result from Last 3 Months or Most Recently Relevant to Health Maintenance Insurance [facility] [id number] [employer] [facility] [id number] Advance Directives For more information, please contact: [phone] * Full Code (Latest Code Status on File) Date Activated Date Inactivated Comments 10/21/2024 1:42 PM 10/21/2024 7:29 PM * Full Code Date Activated Date Inactivated Comments 01/22/2024 8:21 AM 01/22/2024 5:04 PM * Full Code Date Activated Date Inactivated Comments 11/28/2022 10:06 AM 11/28/2022 4:24 PM * Full Code Date Activated Date Inactivated Comments 12/06/2021 12:17 PM 12/06/2021 6:17 PM * Full Code Date Activated Date Inactivated Comments 04/11/2021 9:38 AM 04/11/2021 3:08 PM Care Teams International Account Manager Relationship Specialty Start Date End Date Elizabeth Orr MD PCP - General Family Practice 09/27/20 Hanh Mcleod, RN Registered Nurse Pulmonary Disease 12/02/22
--- OUTSIDE RECORDS SUMMARY | 2025-01-24 10:49 | XMS_ITS | Clinical Summary ---
Author Organization [facility] Address [address] [address] Care Team Providers Care Belt Press Operator Name Role Phone Elizabeth Orr MD Primary Care Provider Hanh Mcleod RN Unavailable Unavailabl e Allergies Active Allergy Reactions Criticality Noted Date [...] phone. Assessment & Plan (10/10/2022 1:22 PM IT APPLICATION ARCHITECT): Reviewed calorie restriction based on BMR as previously detailed. Reviewed recommendation/goal of >/= 150 minutes/week moderate-intensity aerobic exercise. Asked to try to track consistently with [employer] kulwinder for at least 1 week [...] metformin. Assessment & Plan (10/10/2022 1:29 PM IT APPLICATION ARCHITECT): Reviewed interim labs, will recheck CMP, vit [...] w/r/t gut microbiome. Referred to ADA and [facility] websites for additional information on topics including [...] Other: Assessment & Plan (10/10/2022 1:23 PM IT APPLICATION ARCHITECT): Obesity is improving with treatment. Diet interventions: [...] (05/14/2022): Added automatically from request for surgery [id number] Mass of upper outer quadrant of right breast 02/2022 Achalasia 09/14/2018 Overview (09/14/2018): Added automatically from request for surgery [id number] Chronic urticaria 08/21/2017 Allergy to dust 12/25/2016 [...] (02/09/2019): Added automatically from request for surgery [id number] Angular cheilitis 07/10/2017 07/21/2020 Excoriation 06/26/2017 07/21/2020 Pruritus 06/26/2017 07/21/2020 Toxic effect of venom(989.5) 12/21/2015 07/21/2020 Food allergy 12/21/2015 07/21/2020 Alopecia 05/29/2015 07/21/2020 Mass of breast 05/03/2014 07/21/2020 Achalasia of esophagus 11/05/201207/21 Muscle pain 06/06/2011 07/21/2020 Abdominal pain, right lower quadrant 04/06/2004 07/21/2020 Encounters Date Type Department Care Team Description 01/21/2025 10:00 AM CDT Office Visit [facility] Allergy and Immunology [address] [place] [phone] Juanjose Valdez MD PhD Allergic rhinitis due to pollen, unspecified seasonality (Primary Dx); Chronic idiopathic urticaria 01/20/2025 Telephone [facility] Allergy and Immunology [address] [place] [address] Aleta eWaver 01/14/2025 Orders Only [facility] Pulmonary [address] [place] [address] [place] [phone] Miguel Joseph MD PhD 01/10/2025 3:00 PM CDT Office Visit [facility] Neuro Muscle [address] [place] [address] [place] [phone] Bahman Thomas MD PhD HyperCKemia (Primary Dx); Small fiber neuropathy from Last 3 Months Immunizations Immunization Administration Dates Next Due Influenza, Quadrivalent, Zulema l Culture-based MDCK, Preservative Free, Antibiotic Free, Intramuscular 08/18/2023 Influenza, Quadrivalent, Spl it, Preservative Free, Intramuscular 09/22/2017 Influenza, Trivalent, IM (MDV) 09/09/2012 Influenza, Trivalent, Preser vative Free, Intramuscular 09/22/2015,08/23/2013,09/02/2011 Surgical History Surgery Date Site/Laterality Comments CA CHOLECYSTECTOMY 10/06/2009 - 10/05/2010 CA ESOPHAGOMYOTOMY HELLER TY PE ABDOMINAL APPROACH 10/06/2012 - 10/05/2013 Jayro fundoplication c/b stricture et dilatations COLONOSCOPY SINUS SURGERY 10/06/1996 - 10/05/1997 BREAST EXCISIONAL BIOPSY 10/06/2012 - 10/05/2013 BREAST BIOPSY 03/18/2022 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 ESOPHAGOGASTRODUODENOSCOPY 10/06/2021 - 10/05/2022 UPPER GASTROINTESTINAL ENDOSCOPY POLYPECTOMY Medical History Medical History Date Comments SLE (systemic lupus erythematosus) (HCC) 2010 mixed connective tissue disease Raynaud's disease GERD (gastroesophageal reflux disease) Asthma Chronic urticaria Achalasia NICKO on CPAP Pyelonephritis 2010 Small fiber neuropathy Hypertension Arthritis Autoimmune disease Dysphagia Chronic diarrhea Family History Medical History Relation Name Comments Diabetes Brother 1 Daren Wayne Family history of diabetes mellitus - (Added by Conv) Skin cancer Brother 1 Daren Wayne Diabetes Brother 2 F Diabetes Brother 3 Johny Myasthenia gravis Father Family his tory of myasthenia gravis - (Added by TW Conv) cholangiocarcinoma Half-Sister Diabetes Mother Sara Arrington Family histo ry of diabetes mellitus - (Added by TW Conv) Hearing loss Mother Sara Arrington Stroke Mother Sara Arrington Colon cancer Other Cancer Sister Ksenia W Diabetes Sister Ksenia W Family history of diabetes mellitus - (Added by TW Conv) Skin cancer Sister Ksenia W Anesthesia problems Neg Hx Relation Name Status Comments Brother 1 Daren Wayne Brother 2 F Brother 3 Johny Father Half-Sister Alive Mother Sara Arrington Other Sister Ksenia W Social History Tobacco Use Types Packs/Day Years [...] on file Legal Sex Female 12:28 PM IT APPLICATION ARCHITECT Gender Identity Female 03/13/2018 10:24 AM CDT Sexual Orientation Not on file Obstetrics History Last Filed Vital Signs Vital Sign Reading [...] 01/21/2025 9:56 AM CDT Plan of Treatment Health Maintenance Due Date Last Done Comments Cervical Cancer Screening 1971 Depression Screening 1971 Hepatitis C Screening 1971 DTaP/Tdap/Td Vaccine (1 - Tdap) 1982 Hepatitis B Screening 1989 Regular Well Visit/Exam 18-64 1989 Pneumococcal vaccine <65 (1 of 2 - PCV) 1990 Zoster Vaccine (1 of 2) 1990 Covid-19 Vaccine (3 - Modern a risk series) 01/16/2021 12/19/2020, 11/08/2020 Breast Cancer Screening-Mammogram 05/18/2025 05/18/2024, 04/15/2023, 02/28/2022, Additional history exists Influenza Vaccine (Season Ended) 2025 08/18/2023, 09/22/2017, 09/22/2015, Additional history exists Colon Cancer Screening-Colonoscopy 11/28/20322022 Medical Devices Implanted Type Area Presentation Manager Device Identifier Shelf Expiration Date Model / Serial / Lot Bard Peripheral Vascular Ultraclip Bard 17ga 10cm 2 Trigger Permanent Ultrasound [id number] - [id number] Implanted:Qty: 1 on 03/18/2022 at [facility] [employer] [id number] / / Procedures Procedure Name Priority Date/Time Associated Diagnosis Comments SCREENING MAMMOGRAM BILATERAL W JAKOB Schedule Routine, Read Routine (OP Routine) 05/18/2024 10:03 AM CDT Cystosarcoma phyllodes of right breast Mass of upper outer quadrant of right breast Breast lesion COLONOSCOPY 11/28/2022 11:02 AM IT APPLICATION ARCHITECT from Last 3 Months or Most Recently [...] compared to prior imaging studies performed at [facility] on 03/05/2022 and 04/15/2023, and at [facility] on 02/28/2022. There are scattered areas of [...] compared to prior imaging studies performed at [facility] on 03/05/2022 and 04/15/2023, and at [facility] on 02/28/2022. There are scattered areas of fibroglandular density. There is no suspicious abnormality in either breast. Impression: There is no mammographic evidence of malignancy. Annual screening mammography is recommended. OVERALL FINAL ASSESSMENT: BI-RADS CATEGORY 1: Negative. us Fabi Hill MD IMG MAMMO PROCEDURES Fi nal Result * COLONOSCOPY (11/28/2022 11:02 AM IT APPLICATION ARCHITECT) Anatomical Region Laterality Modality Other Narrative Procedure Note Kwasi Holder MD - 11/28/2022 11:02 AM CST ENDOSCOPY LAB Patient Name: Parish Arrington Procedure Date: 11/28/2022 11:02 AM Date of : 1970 Admit Type: Outpatient Age: 52 Gender: Female Attending MD: Christelle Holder M.D. Room: [facility] ENDOSCOPY ROOM 03 Note Status: Finalized Procedure: [...] The scope was passed under direct vision.The [id number] was introduced through the anusand advanced to [...] Most Recently Relevant to Health Maintenance Insurance [facility] [id number] [address] [place] [id number] Advance Directives For more information, please contact: [phone] * Full Code (Latest Code Status on [...] 9:38 AM 04/11/2021 3:08 PM Care Teams Belt Press Operator Relationship Specialty Start Date End Date Elizabeth Orr MD PCP - General Family Practice 09/27/20 Hanh Mcleod, RN Registered Nurse Pulmonary Disease 12/02/22
[2025-01-24 14:02] LABS: Cholesterol 191 mg/dL (0-200); HDL Direct 45 mg/dL; Triglycerides 180 mg/dL (<150)
[2025-01-24 14:05] LABS: Alanine Aminotransferase 46 U/L (6-35); Albumin Level 4.3 g/dL (3.5-5.1); Alkaline Phosphatase 122 U/L (38-126); Anion Gap 8 mmol/L (4-12); Aspartate Amino Transferase 67 U/L (14-36); Bilirubin,Total 0.5 mg/dL (0.2-1.3); Blood Urea Nitrogen 15 mg/dL (7-17); Calcium 8.7 mg/dL (8.4-10.2); Carbon Dioxide 34 mmol/L (22-30); Chloride 97 mmol/L (98-107); Estimated Glomerular Filt Rate > 60; Glucose 89 mg/dL (65-110); Sodium 139 mmol/L (137-145)
[2025-01-24 14:13] LABS: LDL Cholesterol Direct 100 mg/dL
[2025-01-24 14:22] LABS: Vitamin D 25 Hydroxy 21.3 ng/mL
== END 2025-01-24 09:42 | disposition home or self-care (01) ==
LOC: ANHGOSHLAB 09:42
PROVIDERS: PCP Nurse Practitioner Family; Visit Provider Nurse Practitioner Family
DX: E78.2 Mixed hyperlipidemia (principal); E78.5 Hyperlipidemia, unspecified; M33.20 Polymyositis, organ involvement unspecified; M35.9 Systemic involvement of connective tissue, unspecified; R53.83 Other fatigue
CPT/HCPCS: 36415; 80053; 80061; 82306; 82607; 84443

== ENCOUNTER 2025-06-10 10:04 | Outpatient (CLI) | payer OTHER, SELFPAY ==
--- OUTSIDE RECORDS SUMMARY | 2004-04-05 19:00 | XMS_ITS | Continuity of Care Document ---
Author Organization [email or web address] Address [address] [place] [address] Phone Care Team Providers Care Clinical Applications Specialist Name Role Phone Celestino Wing MD Unavailable Unavailable Results Test Name Date and Time Measure Units Reference Range Abnormal Flag Status Comments Panel Description: CMP Unknown Na- 00:00:00 142 mmol/L Unknown K- 00:00:00 3.9 mmol/L Unknown Cl- 00:00:00 103 mmol/L Unknown CO2- 00:00:00 25 mEq/L Unknown Glucose- 00:00:00 79 mg/dL Unknown BUN- 00:00:00 12 mg/dL Unknown Creat- 00:00:00 1.0 mg/dL Unknown Bun/Creat 00:00:00 12 Ratio Unknown Calcium- 00:00:00 10.5 mg/dL H Unknown Protein- 00:00:00 7.3 g/dL Unknown Albumin- 00:00:00 4.3 g/dL Unknown Globulin 00:00:00 3.0 calc Unknown A/G 00:00:00 1.4 Ratio Unknown Bili, T- 00:00:00 0.4 mg/dL Unknown Alk Phos- 00:00:00 104 U/L Unknown AST- 00:00:00 21 U/L Unknown ALT- 00:00:00 26 U/L Unknown Advance Directives Directive Yes / No Effective Date File Name No Information Encounters Encounter Description Practice Location Reason(s) For Visit Diagnoses Date Provider Providers Copied on Encounter [facility], [address], [place], [place], [id number], [place] tel:[phone] [facility] ESOPHAGEAL REFLUXABDMNAL PAIN RT LWR QUAD Maciej Celestino. [address] [facility], [address], [place], [place], [id number], [place]. tel:[phone] Family History Family Member Type Diagnosis Age At Onset No Information Payers Payer name Insurance type Covered green party ID Authoriza tion(s) No Information Social History Type Description Quantity Date Captured Comments Sex Female Smoking Status No Information Chief Complaint And Reason For Visit No Information Reason For Referral Reason For Referral No Information History Of Present Illness Encounter Date Complaint History Of Prese nt Illness No Information Functional Status Date Functional Assessmen t No Information Instructions Date Instruction Additional Infor mation No Information Assessments Type Assessment Date No Information Patient Care Teams Name Effective Dates (start - stop) Status Members No Information
--- OUTSIDE RECORDS SUMMARY | 2025-06-10 10:17 | XMS_ITS | Clinical Summary ---
Author Organization [facility] [employer] Address [address] [place] [address] Care Team Providers Care Truck Driver Helper Name Role Phone Kary Russell APRN-GLOVE PARTS CUTTER Primary Care Provider Cuco Canales MD Unavailable Source Comments [facility],non-owned Affiliates and Associated Physician Practices is amultiple site organization consisting of ambulatory clinics and hospital sitesin [place], [place], [place] and [place]. This disclosure is being madepursuant to the Care Everywhere program and may not contain all information available regarding this patient. Last updated 18.[facility] [employer] Allergies Active Allergy Reactions Criticality Noted Date Comments Cinnamon Anaphylaxis,Swelling High 04/10/2021 Sulfa Drugs Rash Medium 05/03/2011 Medications * Be aware that medications may not be up to date on this document. Alwaysverify current medications with the patient. albuterol HFA (Proventil; Ventolin; Proair) 108 (90 Base) MCG/ACT inhaler Inhale 2 (two) puffs by mouth every 4 hours as needed 5 02/01/20 26 Active Cholecalciferol 1.25 MG (13359 UT) Take 50,000 Units by mouth Active budesonide-form oterol (Symbicort) 160-4.5 MCG/ACT inhaler Inhale 2 (two) puffs by mouth 2 times daily 5 Active cyclobenzaprine (Flexeril) 10 MG tablet Take 1 (one) tablet by mouth 3 times daily as needed 4 Active DULoxetine (Cymbalta) 30 MG capsule Take 1 (one) capsule by mouth once daily 5 Active diphenoxylate-a tropine (Lomotil) 2.5-0.025 MG tablet TAKE 2 TABLETS BY MOUTH THREE TIMES DAILY NEEDED FOR DIARRHEA 4 Active gabapentin (Neurontin) 600 MG tablet Oral for 30 Days 5 Active hydroCHLOROthia zide 12.5 MG Take 1 (one) tablet by mouth once daily Active latanoprost (Xalatan) 0.005 % ophthalmic solution Ophthalmic for 25 Days Active ketorolac (Toradol) 10 MG tablet Take 1 (one) tablet by mouth every 6 hours as needed pain 4 Active RABEprazole EC (Aciphex) 20 MG tablet Oral for 30 Days 4 Active ondansetron (Zofran) 4 MG tablet Oral for 21 Days 4 Active Olopatadine-Mom etasone (Ryaltris) 665-25 MCG/ACT SUSP [place] 665 mcg into the nose 2 times daily 5 Active timolol maleate (Timoptic) 0.5 % ophthalmic solution INSTILL 1 DROP INTO BOTH EYES ONCE IN THE MORNING Active traMADol (Ultram) 50 MG tablet Take 1 (one) tablet by mouth 2 times daily as needed Active valACYclovir (Valtrex) 1 GM tablet TAKE 1 TABLET BY MOUTH THREE TIMES DAILY FOR 7 DAYS FOR HERPES ZOSTER 4 Active cyanocobalamin (Vitamin B-12) 100 MCG tablet Take 1 (one) tablet by mouth once daily Active Active Problems Problem Noted Date Diagnosed Date Asthma 02/24/2025 Cystosarcoma phyllodes of right breast 3 Class 3 severe obesity with body mass index (BMI) of 60.0 to 69.9 in adult 05/27/2022 Achalasia 09/14/2018 Overview (02/24/2025): Added automatically from request for surgery [id number] Chronic urticaria 08/21/2017 Small fiber neuropathy 04/18/2014 Hiatal hernia 11/30/2013 Systemic lupus erythematosus 05/03/2011 Esophageal reflux 04/06/2004 Immunizations Immunization Administration Dates Next Due Shawnaid Annea primary monovalent 12+ yr 0.5mL ,11/08/2020 FLU VACCINE TRI IIV3 SPLIT IM (FLUVIRIN) 012 FLU VACCINE TRI IIV3 SPLIT PF IM (FLUVIRIN) 08/06,09/02/2011 INFLUENZA VACCINE, CELL CULT URE, QUADR. (FLUCELVAX QUADRIVALENT; 6MO+) (CCIIV4) 08/18/2023 INFLUENZA VACCINE, QUADR. (F LUZONE; FLULAVAL; FLUARIX; AFLURIA QUADRIVALENT; 6MO+), 0.5 ML (IIV4) 09/22/2017 INFLUENZA VACCINE, TRIV. (FL UZONE; FLULAVAL; FLUARIX; AFLURIA TRIVALENT; 6MO+), 0.5 ML (IIV3) 09/22/2015 TDAP, HISTORIC VACCINE 10/22/2022 Social History Tobacco Use Types Packs/Day Years Used Date Smoking Tobacco: Never Smokeless Tobacco: Never Tobacco Cessation:Counseling Given: Not Answered Comments Unknown Sex and Gender Information Value Date Recorded Sex Assigned at Not on file Legal Sex Female 2:47 PM CDT Gender Identity Not on file Sexual Orientation Not on file Last Filed Vital Signs Vital Sign Reading Time Taken Comments Blood Pressure 130/70 02/24/2025 2:16 PM CDT Pulse - - Temperature - - Respiratory Rate - - Oxygen Saturation - - Inhaled Oxygen Concentration - - Weight 147.9 kg (326 lb) 02/24/2025 2:16 PM CDT Height 166.4 cm (5' 5.5) 02/24/2025 2:16 PM CDT Body Mass Index 53.42 02/24/2025 2:16 PM CDT Plan of Treatment Health Maintenance Due Date Last Done Comments COLOGUARD (AGES 45-75) - COLON CA SCREENING 1971 CT COLONOGRAPHY - COLON CA SCREENING 1971 FIT - COLON CA SCREENING 1971 FLEX SIG - COLON CA SCREENING 1971 LIPID TESTING 1971 HIV SCREENING 1986 HEPATITIS C SCREENING 05/06/1989 HEPATITIS B VACCINE (1 of 3 - 19+ 3-dose series) 1990 PNEUMOCOCCAL VACCINE 50+ (1 of 2 - PCV) 1990 ZOSTER VACCINE (1 of 2) 2021 COVID-19 VACCINE ( season) 2024 12/19/2020, 11/08/2020 DEPRESSION SCREENING 10/06/2024 SCREENING FOR DIABETES 02/24/2025 INFLUENZA VACCINE (#1) 2025 , 09/22/2017, 09/22/2015, Additional history exists MAMMOGRAM 05/18/2026 05/18/2024, 05/06, 04/15/2023, Additional history exists PAP SMEAR 02/25/2028 02/24/2025 DTAP/TDAP/TD VACCINES (2 - Td or Tdap) 10/22/2032 10/22/2022 COLON MONITORING 11/28/2032 11/28/2022 COLONOSCOPY - COLON CA SCREENING 11/28/2032 11/28/2022 Colorectal Cancer Screening 11/28/2032 HIB VACCINE Aged Out No longer eligi ble based on patient's age to complete this topic HPV VACCINE Aged Out No longer eligi ble based on patient's age to complete this topic MENINGOCOCCAL (Group B) VACCINE SHARED DECISION-MAKING Aged Out No longer eligible based on patient's age to complete this topic MENINGOCOCCAL GROUPS A/C/Y/W VACCINE Aged Out No longer eligible based on patient's age to complete this topic Procedures Procedure Name Priority Date/Time Associated Diagnosis Comments PAP IG LB+HPV APTIMA Routine 02/24/2025 2:26 PM CDT Well woman exam with routine gynecological exam from Last 3 Months or Most Recently Relevant to Health Maintenance Results * PAP IG LB+HPV APTIMA (02/24/2025 2:26 PM CDT) Diagnosis Comment [facility] ACCOUNT BILL Comment:NEGATIVE FOR INTRAEP ITHELIAL LESION OR MALIGNANCY. Specimen Adequacy Comment [facility] ACCOUNT BILL Comment:Satisfactory for oriana luation. No endocervical component is identified. Clinician Provided ICD10 Comment [facility] ACCOUNT BILL Comment:Z01.419 Performed by Comment [facility] ACCOUNT BILL Comment:Rick garner, Credit Intern (ASCP) Comment . [facility] ACCOUNT BILL Note Comment [facility] ACCOUNT BILL Comment: The Pap smear is a screening test designed to aid in the detection of premalignant and malignant conditions of the uterine cervix. It is not a diagnostic procedure and should not be used as the sole means of detecting cervical cancer. Both false-positive and false-negative reports do occur. IGLBP CPT Code Automation Comment [facility] ACCOUNT BILL Comment: This liquid based ThinPrep(R) pap test was screened with the use of an image guided system. Human papillomavirus Aptima Negative Negative [facility] ACCOUNT BILL Comment: This nucleic acid amplification test detects fourteen high-risk HPV types (16,18,31,33,35,39,45,51,52,56,58,59,66,68) without differentiation. Pathology/Cytolog y PART OF UTERINE CERVIX / Unknown 02/24/2025 2:26 PM CDT 02/24/2025 Comment:Cervix Release to [facility] Narrative [facility] ACCOUNT BILL - 03/01/2025 1:09 PM CDT Performed at: - [facility] [id number] Glass Cleaning Machine Tender: Natali Strauss MD, Phone: [phone] Performed at: 02 - [facility] [id number] Glass Cleaning Machine Tender: Natali Strauss MD, Phone: [phone] Specimen Comment: [id number] Specimen Comment: Source.............Cervix Specimen Comment: No. of containers..01 ThinPrep Vial Cuco Canales MD LAB - PATHOLOGY/CYTOLOGY ORDERA BLES Final Result [facility] ACCOUNT BILL [address] [place] [address] from Last 3 Months or Most Recently Relevant to Health Maintenance Insurance [employer] Care Teams Truck Driver Helper Relationship Specialty Start Date End Date Kayr Russell, SNUFF DRIER-GLOVE PARTS CUTTER [address] [place] [address] PCP - General Nurse Practitioner Family 02/24/25 Cuco Canales MD [address] [place] [phone] Mold Filler Urogynecology 02/24/25
--- OUTSIDE RECORDS SUMMARY | 2025-06-10 10:17 | XMS_ITS | Clinical Summary ---
Author Organization [facility] Address [address] [address] Care Team Providers Care Powder Compounder Name Role Phone Elizabeth Orr MD Primary Care Provider Hanh Mcleod RN Unavailable Unavailabl e Allergies Active Allergy Reactions Criticality Noted Date Comments Cinnamon Swelling Medium 04/10/2021 Sulfa (Sulfonamide Antibiotics) Rash Medium 04/06 Medications ketoconazole (NIZORAL) 2 % shampoo Apply 1 application (deactivated) topically as needed for irritation 10/09/19 16 Active nitroglycerin (NITROSTAT) 0.3 mg SL tablet [...] 5 05/27/20 22 Active Additional Information Patient not taking.Reported on 04/12/2025 acetaminophen (TYLENOL) 325 mg tablet Take 2 tablets (650 mg total) by mouth every 6 (six) hours as needed for pain Active ergocalciferol (VITAMIN D) 50,000 unit capsule Take 1 capsule (50,000 Units total) by mouth once a week 4 capsule 2 01/23/20 23 Active cyclobenzaprine (FLEXERIL) 10 mg tablet [...] face. 60 mL 3 07/04/20 23 Active latanoprost (XALATAN) 0.005 % ophthalmic solution Administer 1 drop into both eyes daily 07/15/20 23 Active ondansetron (ZOFRAN) 4 mg tablet Take [...] Active Additional Information Patient not taking.Reported on 04/12/2025 budesonide-form oteroL (Symbicort) 160-4.5 mcg/actuation inhaler Inhale [...] a day 9 g 01/22/20 25 Active gabapentin (NEURONTIN) 600 mg tabletIndicatio ns:Small fiber neuropathy Take 1 tablet (600 mg total) by mouth 3 (three) times a day 90 tablet 2 01/29/20 25 Active vitamins J2-V4-L8-B12-pr otease 2.5 mg-2.5 mg- 5 mg-100 mcg tablet Take by mouth Active albuterol HFA (Proventil HFA) 90 mcg/actuation inhaler Inhale 2 puffs every 4 (four) hours as needed for wheezing or shortness of breath 6.7 g 5 02/01/[address] (CYMBALTA) 30 mg capsule TAKE 1 CAPSULE(30 MG) BY MOUTH DAILY 30 capsule 3 03/07/20 25 Active diphenoxylate-a tropine (LOMOTIL) 2.5-0.025 mg per tablet TAKE 2 TABLETS BY MOUTH THREE TIMES DAILY NEEDED FOR DIARRHEA 60 tablet 2 04/11/20 25 Active triamcinolone (KENALOG) 0.1 % ointmentIndicat ions:Cellulitis of left leg Apply topically 2 (two) times a day for 10 days 30 g 04/12/[address] (ACIPHEX) 20 mg EC tablet Take 1 tablet (20 mg total) by mouth 2 (two) times a day before breakfast and dinner PA request has been approved 180 tablet 3 04/14/20 25 026 Active hydroxychloroqu ine (PLAQUENIL) 200 mg tablet TAKE 2 TABLETS(400 MG) BY MOUTH DAILY 60 tablet 05/30/20 25 Active hydroxychloroqu ine (PLAQUENIL) 200 mg tablet Take 2 tablets (400 mg total) by mouth daily 60 tablet 04/26/20 25 025 Discontinued Active Problems Problem Noted Date Diagnosed Date [...] phone. Assessment & Plan (10/10/2022 1:22 PM CONVENTION MANAGER): Reviewed calorie restriction based on BMR as previously detailed. Reviewed recommendation/goal of >/= 150 minutes/week moderate-intensity aerobic exercise. Asked to try to track consistently with [employer] kulwinder for at least 1 week [...] metformin. Assessment & Plan (10/10/2022 1:29 PM CONVENTION MANAGER): Reviewed interim labs, will recheck CMP, vit [...] w/r/t gut microbiome. Referred to ADA and [employer] websites for additional information on topics including [...] Other: Assessment & Plan (10/10/2022 1:23 PM CONVENTION MANAGER): Obesity is improving with treatment. Diet interventions: [...] (05/14/2022): Added automatically from request for surgery [id number] Mass of upper outer quadrant of right breast 02/2022 Achalasia 09/14/2018 Overview (09/14/2018): Added automatically from request for surgery [id number] Chronic urticaria 08/21/2017 Allergy to dust 12/25/2016 [...] (02/09/2019): Added automatically from request for surgery [id number] Angular cheilitis 07/10/2017 07/21/2020 Excoriation 06/26/2017 07/21/2020 Pruritus 06/26/2017 07/21/2020 Toxic effect of venom(989.5) 12/21/2015 07/21/2020 Food allergy 12/21/2015 07/21/2020 Alopecia 05/29/2015 07/21/2020 Mass of breast 05/03/2014 07/21/2020 Achalasia of esophagus 11/05/201207/21 Muscle pain 06/06/2011 07/21/2020 Abdominal pain, right lower quadrant 04/06/2004 07/21/2020 Encounters Date Type Department Care Team Description 06/01/2025 Results Follow-Up [facility] Medicine Surgery [address] [place] [address] Ruthie Mendoza NP Screening Mammogram Bilateral W Jakob 05/31/2025 2:45 PM CDT Office Visit [facility] Medicine Surgery [address] [place] [phone] Ruthie Mendoza NP Benign phyllodes tumor of breast, right (Primary Dx); Encounter for screening mammogram for malignant neoplasm of breast 05/31/2025 1:41 PM CDT - 05/31/2025 11:59 PM CDT Hospital Encounter [facility] [address] [place] [phone] Cystosarcoma phyllodes of right breast Discharge Disposition: Discharge to home or self care 04/12/2025 9:30 AM CDT Office Visit [facility] at [address] [address] Corbin Bustillo NP Cellulitis of left leg (Primary Dx); Allergic contact dermatitis due to plants, except food 04/07/2025 Orders Only [facility] Gastroenterology [address] [facility] Medicine 12th [place] [address] [place] [phone] Kwasi Holder MD Esophageal dysphagia (Primary Dx) 04/07/2025 Telephone [facility] Gastroenterology [address] [facility] [address]th [place] [address] [place] [phone] Sherita Mandel RMA PRE PROCEDURE ASSESSMENT from Last 3 Months Immunizations Immunization Administration Dates Next Due Influenza, Quadrivalent, Zulema l Culture-based MDCK, Preservative Free, Antibiotic Free, Intramuscular 08/18/2023 Influenza, Quadrivalent, Spl it, Preservative Free, Intramuscular 09/22/2017 Influenza, Trivalent, IM (MDV) 09/09/2012 Influenza, Trivalent, Preser vative Free, Intramuscular 09/22/2015,08/23/2013,09/02/2011 Surgical History Surgery Date Site/Laterality Comments TN CHOLECYSTECTOMY 10/06/2009 - 10/05/2010 TN ESOPHAGOMYOTOMY HELLER TY PE ABDOMINAL APPROACH 10/06/2012 [...] - (Added by TW Conv) Skin cancer Brother 1 Daren Wayne Diabetes Brother 2 F Diabetes Brother 3 Johny Myasthenia gravis Father Family his tory of myasthenia gravis - (Added by TW Conv) cholangiocarcinoma Half-Sister Diabetes Mother Elfriedeula Goeben Family histo ry of diabetes mellitus - (Added by TW Conv) Hearing loss Mother Elfrneil Wahleben Stroke Mother Elfrneil Arrington Colon cancer Other Cancer Sister Ksenia W Bile duct cance r per pt Diabetes Sister Ksenia W Family history of diabetes mellitus - (Added by TW Conv) Skin cancer Sister Ksenia W Anesthesia problems Neg Hx Breast cancer Neg Hx Endometrial cancer Neg Hx Ovarian cancer Neg Hx Pancreatic cancer Neg Hx Prostate cancer Neg Hx Thyroid cancer Neg Hx Relation Name Status Comments Brother [...] on file Legal Sex Female 12:28 PM CONVENTION MANAGER Gender Identity Female 03/13/2018 10:24 AM CDT Sexual Orientation Not on file Obstetrics History Para Term AB IAB SAB Ectopic Multiple Livin g Live Births 0 0 0 0 0 0 0 0 0 0 0 Last Filed Vital Signs Vital Sign Reading Time Taken Comments Blood Pressure 151/90 05/31/2025 2:39 PM CDT Pulse 77 05/31/2025 2:39 PM CDT Temperature 36.3 C (97.4 F) 05/31/2025 2:39 PM CDT Respiratory Rate 18 05/31/2025 2:39 PM CDT Oxygen Saturation 93% 05/31/2025 2:39 PM CDT Inhaled Oxygen Concentration - - Weight 146.5 kg (323 lb) 05/31/2025 2:38 PM CDT Height 165.1 cm (5' 5) 05/31/2025 2:38 PM CDT Body Mass Index 53.75 05/31/2025 2:38 PM CDT Plan of Treatment Upcoming Encounters Date Type Department Care Team (Latest Contact Info) Description 06/30/2025 12:15 PM CDT Hospital Encounter [facility] Endoscopy [address] [address] Kwasi Holder MD [address] [place] [address] 06/30/2025 12:15 PM CDT - 06/30/2025 12:45 PM CDT Surgery [facility] Endoscopy [address] [address] Kwasi Holder MD [address] [place], [place] [id number] EGD WITH DILATION Scheduled Procedures Name Priority Associated Diagnoses Date/Ti me ESOPHAGOGASTRODUODENOSCOPY Esophageal dysphagia 06/30/2025 12:15 PM CDT Health Maintenance Due Date Last Done Comments Cervical Cancer Screening 1970 Depression Screening 1970 Hepatitis C Screening 1971 Hepatitis B Screening 1989 Regular Well Visit/Exam 18-64 1989 Pneumococcal vaccine <65 (1 of 2 - PCV) 1990 Zoster Vaccine (1 of 2) 1990 Covid-19 Vaccine (3 - Modern a risk series) 01/16/2021 12/19/2020, 11/08/2020 Influenza Vaccine (#1) 2025 3, 09/22/2017, 09/05/2017, Additional history exists Breast Cancer Screening-Mammogram 05/31/2026 05/31/2025, 05/18/2024, 04/15/2023, Additional history exists DTaP/Tdap/Td Vaccine (2 - Td or Tdap) 10/22/2032 10/22/2022 Colon Cancer Screening-Colonoscopy 11/28/20322022 Medical Devices Implanted Type Area Sports Management Professor Device Identifier Shelf Expiration Date Model / Serial / Lot [employer] Peripheral V[employer] Ultraclip Bard 17ga 10cm 2 Trigger Permanent Ultrasound [id number] - [id number] Implanted:Qty: 1 on 03/18/2022 at [facility] [employer] [id number] / / Procedures Procedure Name Priority Date/Time Associated Diagnosis Comments SCREENING MAMMOGRAM BILATERAL W JAKOB Schedule Routine, Read Routine (OP Routine) 05/31/2025 2:14 PM CDT Cystosarcoma phyllodes of right breast COLONOSCOPY 11/28/2022 11:02 AM CONVENTION MANAGER from Last 3 Months or Most Recently Relevant to Health Maintenance Results * Screening Mammogram Bilateral W Jakob (05/31/2025 2:14 PM CDT) Anatomical Region Laterality Modality Breast Bilateral Mammography Impressions 05/31/2025 3:48 PM CDT Bilateral No evidence of malignancy in either breast. OVERALL BI-RADS FINAL ASSESSMENT: 2 - Benign RECOMMENDATION: Recommend bilateral annual screening mammography. Narrative 05/31/2025 3:48 PM CDT EXAMINATION: Screening Mammogram Bilateral W Jakob: 05/31/2025 COMPARISON: Relevant prior studies available at the time of interpretation were reviewed, including the most recent mammogram on: 05/18/2024 and 04/15/2023. TECHNIQUE: Mammography was performed with 2D and 3D digital breast tomosynthesis (DBT) images. CAD was utilized. BREAST PARENCHYMAL COMPOSITION: There are scattered areas of fibroglandular density. FINDINGS: Bilateral There is no suspicious mass, calcification, or architectural distortion in either breast. There have been no significant interval changes from prior studies. us Chelsea Shearer NP IM MAMMO PROCEDURES Final Result * COLONOSCOPY (11/28/2022 11:02 AM CONVENTION MANAGER) Anatomical Region Laterality Modality Other Narrative Procedure Note Kwasi Holder MD - 11/28/2022 11:02 AM CST ENDOSCOPY LAB Patient Name: Parish Arrington Procedure Date: 11/28/2022 11:02 AM Date of : 1970 Admit Type: Outpatient Age: 52 Gender: Female Attending MD: Christelle Holder M.D. Room: [facility] ENDOSCOPY ROOM 03 Note Status: Finalized Procedure: [...] The scope was passed under direct vision.The [id number] was introduced through the anusand advanced to [...] Most Recently Relevant to Health Maintenance Insurance [facility] [id number] [facility] [id number] [facility] [id number] Advance Directives For more information, please contact: [phone] * Full Code (Latest Code Status on [...] 9:38 AM 04/11/2021 3:08 PM Care Teams Powder Compounder Relationship Specialty Start Date End Date Elizabeth Orr MD PCP - General Family Practice 09/27/20 Hanh Mcleod, RN Registered Nurse Pulmonary Disease 12/02/22
--- OUTSIDE RECORDS SUMMARY | 2025-06-10 10:17 | XMS_ITS | Encounter Summary ---
Author Organization [facility] Address [address] [place] [address] Phone Care Team Providers Care Ic Design Manager Name Role Phone Elizabeth Orr MD Primary Care Provider Hanh Mcleod RN Unavailable Unavailabl e Encounter Details Date Type Department Care Team (Late st Contact Info) Description 06/01/2025 Results Follow-Up [facility] Medicine Surgery [address] [place] [address] Ruthie Mendoza, NADIA [address] [address] Screening Mammogram Bilateral W Jakob Social History Tobacco Use Types Packs/Day Years Used Date Smoking Tobacco: Never Passive Smoke Exposure: Never Smokeless Tobacco: Never Alcohol Use Standard Drinks/Week Comments Yes 2 [...] on file Legal Sex Female 12:28 PM MANAGER PAYMENT Gender Identity Female 03/13/2018 10:24 AM CDT Sexual Orientation Not on file documented as of this encounter Plan of Treatment Upcoming Encounters Date Type Department Care Team (Latest Contact Info) Description 06/30/2025 12:15 PM CDT Hospital Encounter [facility] Endoscopy [address] [place] [address] Kwasi Holder MD [address] [place] [address] 06/30/2025 12:15 PM CDT - 06/30/2025 12:45 PM CDT Surgery [facility] Endoscopy [address] [address] Kwasi Holder MD [address] [place] [address] EGD WITH DILATION Scheduled Procedures Name Priority Associated Diagnoses Date/Ti me ESOPHAGOGASTRODUODENOSCOPY Esophageal dysphagia 06/30/2025 12:15 PM CDT documented as of this encounter Visit Diagnoses Not on filedocumented in this encounter Care Teams Ic Design Manager Relationship Specialty Start Date End Date Elizabeth Orr MD PCP - General Family Practice 09/27/20 Hanh Mcleod, RN Registered Nurse Pulmonary Disease 12/02/22 documented as of this encounter
--- OUTSIDE RECORDS SUMMARY | 2025-06-10 10:17 | XMS_ITS | Encounter Summary ---
Author Organization [facility] Address [address] [place] [address] Care Team Providers Care Tool Lapper Hand Name Role Phone Celestino Barajas DO Primary Care Provider [phone]- [phone] Bahman Thomas MD PhD Unavailable Cameron Fong MD Primary Care Provider [phone]- [phone] Luda Bolaños MD Primary Care Provider Cameron Fong MD Primary Care Provider [phone]- [phone] Luda Bolaños MD Primary Care Provider Elizabeth Orr MD Primary Care Provider Hanh Mcleod RN Unavailable Unavailabl e Encounter Details Date Type Department Care Team (Late st Contact Info) Description 12/30/[address] [address] Holley Lux MD [address] [id number] Social History Tobacco Use Types Packs/Day Years Used Date Smoking Tobacco: Never Comments Unknown Sex and Gender Information Value Date Recorded Sex Assigned at Not on file Legal Sex Female 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 Gender Identity Female 03/13/2018 10:24 AM CDT Sexual Orientation Not on file documented as of this encounter Plan of Treatment Upcoming Encounters Date Type Department Care Team (Latest Contact Info) Description 06/30/2025 12:15 PM CDT Hospital Encounter [facility] Endoscopy [address] [address] Kwasi Holder MD [address] [place] [address] 06/30/2025 12:15 PM CDT - 06/30/2025 12:45 PM CDT Surgery [facility] Endoscopy [address] [address] Kwasi Holder MD [address] [place] [address] EGD WITH DILATION Scheduled Procedures Name Priority Associated Diagnoses Date/Ti me ESOPHAGOGASTRODUODENOSCOPY Esophageal dysphagia 06/30/2025 12:15 PM CDT documented as of this encounter Visit Diagnoses Not on filedocumented in this encounter Care Teams Tool Lapper Hand Relationship Specialty Start Date End Date Celestino Barajas DO PCP - General 01/02/17 07/15/18 Cameron Fong MD [address] [place] [address] PCP - General Family Practice 07/16/18 10/06/19 Luda Bolaños MD [address] [place] [address] PCP - General Family Medicine 10/07/19 10/27/19 Cameron Fong MD [address] [place] [address] PCP - General 10/28/19 12/06/19 Luda Bolaños MD [address] [place] [address] PCP - General Family Medicine 12/07/19 09/26/20 Elizabeth Orr MD [address] [place] [address] PCP - General Family Practice 09/27/20 Bahman Thomas MD PhD [address] [place] [address] Referring Physician Neuromuscular Medicine 06/29/1812/06/19 Hanh Mcleod, RN Registered Nurse Pulmonary Disease 12/02/22 documented as of this encounter
[2025-06-10 12:08] LABS: Hematocrit 44.3 % (37.0-47.0); Hemoglobin 14.3 g/dL (12.0-15.0); Immature Granulocyte Percent A 0.4 % (0-0.5); Lymphocytes Absolute Auto 2.05 K/mm3 (0.9-3.2); Mean Corpuscular HGB Conc 32.3 g/dl (32-36); Mean Corpuscular Hemoglobin 29.0 pg (26-34); Mean Corpuscular Volume 89.9 fl (80-100); Nucleated Red Blood Cells Absolute Auto 0.000 K/mm3 (0.0-0.012); Nucleated Red Blood Cells Perc 0.0 % (0.0-0.2); Platelet Count Result 277 k/mm3 (150-375); Red Blood Count 4.93 M/mm3 (4.2-5.4); White Blood Count 7.4 K/mm3 (4.5-10.0)
[2025-06-10 12:17] LABS: Anion Gap 8 mmol/L (4-12); Blood Urea Nitrogen 17 mg/dL (7-17); Carbon Dioxide 32 mmol/L (22-30); Chloride 99 mmol/L (98-107); Potassium 4.6 mmol/L (3.4-5.0); Sodium 139 mmol/L (137-145)
[2025-06-10 12:18] LABS: Alanine Aminotransferase 37 U/L (6-35); Albumin Level 4.3 g/dL (3.5-5.1); Alkaline Phosphatase 101 U/L (38-126); Aspartate Amino Transferase 52 U/L (14-36); Bilirubin,Total 0.4 mg/dL (0.2-1.3); Calcium 9.1 mg/dL (8.4-10.2); Estimated Glomerular Filt Rate > 60; Glucose 95 mg/dL (65-110); Magnesium 2.1 mg/dL (1.6-2.3); Total Protein 8.0 g/dL (6.3-8.2)
[2025-06-10 12:24] LABS: NT Pro B Type Natriuretic Pept 33 pg/mL (19.9-100)
[2025-06-10 12:32] LABS: Add Urine Microscopic? YES; Appearance Urine Cloudy (Clear); Glucose Urine UA Negative (Negative); Leukocyte Esterase Ur 1+ LEU/UL (Negative); Need Manual Microscopic Reviewed; Nitrate Urine Negative (Negative); Non Pathogenic Casts 0-2; Specific Grav Ur 1.021 (1.001-1.035)
[2025-06-10 12:45] LABS: Thyroid Stimulating Hormone Reflex 2.360 uIU/mL (0.465-4.68)
[2025-06-10 13:04] LABS: Vitamin B12 258.0 pg/mL (239-931)
[2025-06-10 13:18] LABS: Hemoglobin A1C 5.6 % (<5.7)
== END 2025-06-10 10:05 | disposition home or self-care (01) ==
PROVIDERS: PCP Family Medicine; Visit Provider Nurse Practitioner Family
DX: E55.9 Vitamin D deficiency, unspecified (principal); R53.83 Other fatigue; R06.02 Shortness of breath; R73.03 Prediabetes; R35.0 Frequency of micturition
CPT/HCPCS: 36415; 80053; 81001; 82306; 82607; 83036; 83735; 83880; 84443; 85025

== ENCOUNTER 2025-06-10 10:32 | Outpatient (CLI) | payer OTHER, SELFPAY ==
--- NOTE | ~2025-06-10 | XR_ITS ---
Examination: XR chest 2V Clinical History: Shortness of breath and fatigue x 2 weeks Comparison: 08/13/2020 Technique: PA and Lateral Findings: Cardiomediastinal silhouette normal size and configuration. Lungs clear. No acute bony abnormality. IMPRESSION: 1. No acute cardiopulmonary findings. Reviewed, dictated and finalized at location R.
== END 2025-06-10 10:33 | disposition home or self-care (01) ==
LOC: GOSHIMG 10:34
PROVIDERS: PCP Family Medicine; Visit Provider Nurse Practitioner Family
DX: R06.02 Shortness of breath (principal)
CPT/HCPCS: 71046